=== PATIENT | female | born 1935 | race Caucasian/White ===

== ENCOUNTER → 2016-07-26 | Outpatient (REF) | payer MEDICARE ==
[~2016-07-26] MED LIST: ASPI1TAB PO; ASPI81CH PO; ATEN50TA2 PO; ATOR1TAB21 PO; CARV12.5 PO; CLON-412 PO; CLONI1TA PO; DONETAB5 PO; DONETAB6 PO; LEVO100T5 PO; NICO14PA TD; NORCOTAB PO; SUPE1TAB PO; SUPETAB56 PO; TYLE325T5 PO; VITA100066 PO; VITA100T20 PO; VITA500T88 PO; [UNRECOGNIZED DRUG - CODE] SL
--- NOTE | 2016-07-26 16:30 | REP ---
Clinical: Trauma. Fall. Technique: AP and lateral views of the right hip. Findings: Mild age-related changes are appreciated. No acute fracture or dislocation. Degenerative changes include joint space narrowing with increase sclerosis to the acetabular roof and subtle marginal spurring as well as cortical irregularity at the greater trochanter. Impression: Mild age-related degenerative changes. No acute fracture or dislocation. Signed by Ebenezer Gutierrez MD 07/26/2016 04:22 P
--- NOTE | 2016-07-26 16:31 | REP ---
Clinical: Trauma. Fall. Technique: AP and lateral views of the right femur. Findings: Age-related osteopenia and degenerative changes at the hip and knee joint noted. No acute fracture dislocation. No subcutaneous emphysema or radiodense foreign body. Impression: Age-related degenerative changes. No acute fracture or dislocation. Signed by Ebenezer Gutierrez MD 07/26/2016 04:23 P
--- NOTE | 2016-07-26 16:34 | REP ---
Clinical: Trauma. Fall. Technique: AP, lateral, bilateral oblique, and coned-down views of the lumbosacral spine. Findings: Advanced multilevel degenerative disc osteophyte complexes noted throughout the thoracolumbar spine. Subtle compression deformity at T12 is of uncertain chronicity but relatively new when compared to CT images dated 11/24/2015. No further acute fracture / compression injury or subluxation is appreciated. Impression: Advanced multilevel degenerative changes. Subtle compression deformity at T12 of uncertain chronicity. Signed by Ebenezer Gutierrez MD 07/26/2016 04:26 P
== END ==
LOC: SKLAB8 08:00
DX: M16.11 Unilateral primary osteoarthritis, right hip (principal); M51.37 Other intervertebral disc degeneration, lumbosacral region; M25.78 Osteophyte, vertebrae; W19.XXXA Unspecified fall, initial encounter; Y92.89 Other specified places as the place of occurrence of the external cause; Y93.89 Activity, other specified; Y99.8 Other external cause status

== ENCOUNTER → 2016-07-27 | Outpatient (CLI) | payer MEDICARE ==
--- NOTE | 2016-07-30 13:18 | REP ---
Clinical: Right hip pain. Technique: Neutral and frog lateral views. Comparison: 07/26/2016. Findings: Moderate osteopenia and age-related degenerative changes are again appreciated. No obvious acute fracture or dislocation. Impression: Degenerative changes. No acute fracture or dislocation. Given the patient's recent trauma, if symptoms persist CT of the right hip may be warranted for further investigation. Signed by Ebenezer Gutierrez MD 07/30/2016 01:09 P
== END ==
LOC: M RAD 16:44
DX: M16.11 Unilateral primary osteoarthritis, right hip (principal)

== ENCOUNTER → 2016-07-27 | Outpatient (REF) | payer MEDICARE | LOC: SKLAB8 14:41 | DX: I10 Essential (primary) hypertension (principal); E03.9 Hypothyroidism, unspecified; Z79.899 Other long term (current) drug therapy; M16.11 Unilateral primary osteoarthritis, right hip ==

== ENCOUNTER → 2016-11-22 | Outpatient (REF) | payer MEDICARE ==
[2016-11-22 10:33] LABS: MEAN CORPUSCULAR HEMOGLOBIN 32.5 pg (27.0-33.0); MEAN CORPUSCULAR HGB CONC 33.3 g/dl (32.0-36.5); MEAN CORPUSCULAR VOLUME 97.7 fl (80.0-96.0); RED CELL DISTRIBUTION WIDTH 12.9 % (11.5-14.5)
[2016-11-22 10:48] LABS: CREATININE FOR GFR 1.75 MG/DL (0.55-1.02); GLOMERULAR FILTRATION RATE 29.6 (>32); POTASSIUM SERUM 4.1 MEQ/L (3.5-5.1)
== END ==
LOC: SKLAB8 07:00
DX: E03.9 Hypothyroidism, unspecified (principal); I10 Essential (primary) hypertension

== ENCOUNTER → 2016-11-29 | Outpatient (REF) | payer MEDICARE ==
[2016-11-29 09:21] LABS: CALCIUM LEVEL 8.9 MG/DL (8.8-10.2); CREATININE FOR GFR 1.52 MG/DL (0.55-1.02); GLOMERULAR FILTRATION RATE 34.9 (>32); POTASSIUM SERUM 4.2 MEQ/L (3.5-5.1)
== END ==
LOC: SKLAB8 08:00
PROVIDERS: ATTEND Nurse Practitioner Adult Health
DX: E03.9 Hypothyroidism, unspecified (principal)

== ENCOUNTER 2016-12-24 09:52 | Inpatient (IN) | payer MEDICARE ==
[~2016-12-24] VITALS: Ht 157.5 cm; Wt 50.5 kg
[~2016-12-24 09:52] MED LIST changes: -ACET650S3 PR; -ASPE10LO TOP; -ASPI81CH3 PO; -DULC10SU2 PR; -ENEMENE6 PR; -LEXA1TAB PO; -MILKSUS PO; -SENN1TAB2 PO; +SENOKOT S TAB PO SCH; -SUPETAB PO; -SYNT100T PO; -TRAM50TA2 PO; -VITA500T3 PO; -VITMTA PO; -[UNRECOGNIZED DRUG - CODE] MT
[2016-12-24] MEDS ORDERED: SODIUM CHLORIDE 0.9% 1000 ML IV ONE (10:15)
[2016-12-24] MEDS ORDERED: MORPHINE 2 MG/ML 1ML SYRINGE IV ONE (10:15)
[2016-12-24] MEDS ORDERED: ONDANSETRON 4MG/2ML VIAL (J2405) IV ONE (10:15)
--- NOTE | 2016-12-24 10:39 | REP ---
Chest one-view HISTORY: Preop Comparison: 04/04/2016 A minimal increase in interstitial markings is present in the lungs consistent with chronic interstitial fibrosis. The heart is normal in size. The pulmonary vasculature is normal in appearance. Impression: Chronic interstitial fibrosis. Signed by Chano Steiner MD 12/24/2016 10:31 A
[2016-12-24 10:43] LABS: BASO % 0.2 % (0.0-1.0); EOS % 0.3 % (0.0-3.0); LARGE UNSTAINED CELL # 0.1 K/mm3 (0.0-0.4); LARGE UNSTAINED CELL % 0.8 % (0.0-4.0); LYMPH # 0.7 K/mm3 (1.5-4.5); LYMPH % 5.8 % (24.0-44.0); MEAN CORPUSCULAR HEMOGLOBIN 32.8 pg (27.0-33.0); MEAN CORPUSCULAR VOLUME 96.3 fl (80.0-96.0); MONO # 0.6 K/mm3 (0.0-0.8); NEUTROPHILS # 9.8 K/mm3 (1.8-7.7); NEUTROPHILS % 87.9 % (36.0-66.0); PLATELET COUNT, AUTOMATED 191 k/mm3 (150-450); RED CELL DISTRIBUTION WIDTH 12.9 % (11.5-14.5); WHITE BLOOD COUNT 11.2 K/mm3 (4.0-10.0)
[2016-12-24 10:53] LABS: INR 1.07
[2016-12-24 11:01] LABS: ANION GAP 10 MEQ/L (8-16); BLOOD UREA NITROGEN 18 MG/DL (7-18); CALCIUM LEVEL 9.1 MG/DL (8.8-10.2); CARBON DIOXIDE LEVEL 26 MEQ/L (21-32); CHLORIDE LEVEL 104 MEQ/L (98-107); CREATININE FOR GFR 0.77 MG/DL (0.55-1.02); GLOMERULAR FILTRATION RATE > 60.0 (>32); GLUCOSE, FASTING 119 MG/DL (83-110); POTASSIUM SERUM 3.5 MEQ/L (3.5-5.1); SODIUM LEVEL 140 MEQ/L (136-145)
[2016-12-24] MEDS ORDERED: VITMTA PO (11:44)
[2016-12-24] MEDS ORDERED: LEXA1TAB PO (11:44)
[2016-12-24] MEDS ORDERED: ASPE10LO TOP (11:44)
[2016-12-24] MEDS ORDERED: [UNRECOGNIZED DRUG - CODE] MT (11:44)
[2016-12-24] MEDS ORDERED: ASPI81CH3 PO (11:44)
[2016-12-24] MEDS ORDERED: ENEMENE6 PR (11:44)
[2016-12-24] MEDS ORDERED: TYLE325T5 PO (11:44)
[2016-12-24] MEDS ORDERED: MILKSUS PO (11:44)
[2016-12-24] MEDS ORDERED: SYNT100T PO (11:44)
[2016-12-24] MEDS ORDERED: SENN1TAB2 PO (11:44)
[2016-12-24] MEDS ORDERED: DULC10SU2 PR (11:44)
[2016-12-24] MEDS ORDERED: SUPETAB PO (11:45)
[2016-12-24] MEDS ORDERED: VITA500T3 PO (11:45)
[2016-12-24] MEDS ORDERED: ACET650S3 PR (11:47)
[2016-12-24] MEDS ORDERED: ACETAMINOPHEN TAB 650MG DOSE (2X325MG) PO PRN (13:30)
[2016-12-24] MEDS ORDERED: MOM 30ML SUSPENSION UDC PO PRN (13:30)
[2016-12-24] MEDS ORDERED: BISACODYL 10 MG SUPP PR PRN (13:30)
--- NOTE | 2016-12-24 14:14 | REP ---
Noncontrast brain CT: History: Trauma. Comparison study: March 27, 2016. Findings: Bony calvarium is intact. No skull fracture is seen. The visualized paranasal sinuses are clear. No significant scalp hematoma is appreciated. There is minimal motion artifact. On soft tissue window settings there is moderate diffuse cerebral atrophy and concordant ventricular enlargement. There are small vessel changes in the periventricular white matter as before. There is no evidence of intracranial hemorrhage. No mass, extra-axial fluid collection, or midline shift is seen. Impression: Moderate diffuse cerebral atrophy. Mild vascular calcification. Small vessel changes. No acute intracranial abnormality. Signed by Jim Castillo MD 12/24/2016 04:23 P
[2016-12-24] MEDS ORDERED: MORPHINE 2 MG/ML 1ML SYRINGE IV PRN ×2 (14:30→18:30)
[2016-12-24] MEDS ORDERED: PERCOCET 5MG/325MG TAB PO PRN ×2 (14:30→18:30)
--- NOTE | 2016-12-24 15:23 | HPEPDOC ---
General Date of Admission Dec 24, 2016 at 13:28 Primary Care Physician: Malik Ureña M.D. Attending Physician: CHIRAG KENDALL MD Chief Complaint The patient is a 81-year-old female admitted with a reason for visit of Hip Fracture. Source: Patient, RN/MD History of Present Illness Ms. Torres is an 81 y/o resident of [facility] who was brought in this morning after falling in her room. She was found to have a left hip fracture. At the time of my evaluation she denied any hip pain; she had received morphine in the ED for pain. The patient has dementia and she is uncertain of recent events. She states that she fell yesterday in her living room; however, her nurse states that the [facility] aide who accompanied her to the ED had reported that she fell this morning in her room. Per nurse, patient is unsteady on her feet at baseline and normally walks with a walker, but frequently forgets to use her walker. Per nurse, the [facility] aide thought that she had a mechanical fall due to not using her walker - she was found on the floor after only a brief period of being unsupervised and she had no loss of consciousness or change in baseline mentation when she was found. The patient denies having any complaints at present. Home Medications Scheduled (Senna Plus 8.6-50 mg) 1 Tab Tab, 1 TAB PO DAILY, (Reported) (Aspirin Childrens) 81 Mg Chw, 81 MG PO DAILY, (Reported) (Super B-100) 1 Tab Tab, 1 TAB PO DAILY, (Reported) Cyanocobalamin (Vitamin B-12) 500 Mcg Tab, 500 MCG PO DAILY, (Reported) Escitalopram Oxalate (Lexapro) 10 Mg Tab, 10 MG PO QHS, (Reported) Levothyroxine Sodium (Synthroid) 100 Mcg Tab, 100 MCG PO DAILY, (Reported) @ 1100 Multivitamins *[facility] STOCKED* (Thera M Plus *[facility] STOCKED*) 1 Tab Tab, 1 TAB PO DAILY, (Reported) Scheduled PRN (Aspercreme) 10 % Lot, 1 DOSE TOP Q2H PRN for PAIN, (Reported) (Enema Disposable) 1 Lucrecia Lucrecia, 1 LUCRECIA MI DAILY PRN for CONSTIPATION, (Reported) Acetaminophen (Tylenol) 325 Mg Tab, 650 MG PO Q4H PRN for PAIN / FEVER, ( Reported) Acetaminophen (Acetaminophen) 650 Mg Sup, 650 MG MI Q4H PRN for PAIN / FEVER, ( Reported) Bisacodyl (Dulcolax) 10 Mg Sup, 10 MG MI DAILY PRN for CONSTIPATION, (Reported) Menthol ([place] Cough Drops) 1 Ea Arcadio, 1 ARCADIO MT Q1H PRN for COUGH, (Reported) Milk Of Magnesia (Milk of Magnesia) 1,200 Mg/15 Ml Anne, 30 ML PO DAILY PRN for CONSTIPATION, (Reported) Allergies Coded Allergies: Penicillins (Unverified Allergy, Unknown, INJ. SITE RED ,HOT AND SWELLING , 09/12/12) Penicillins Cross Reactors (Unverified Allergy, Unknown, INJ. SITE RED , HOT AND SWELLING, 09/12/12) Past Medical History Medical History (Per halfway records) 1. Generalized muscle weakness and difficulty walking 2. Depression 3. Moderate protein-calorie malnutrition 4. Vitamin D deficiency 5. Hypothyroidism 6. Hypertension 7. Paroxysmal atrial fibrillation 8. COPD 9. Alzheimer's disease Surgical History (Per old records) 1. Rectal surgery 2009 Family History Significant Family History: Noncontributory Social History * Smoker: former Smoker Alcohol: Denies Drugs: denies Lives at [facility] Review of Symptoms Constitutional: Denies: Chills, Fever, Malaise Eyes: Denies: Pain, Vision change ENT: Denies: Head Aches Skin: Reports: Rash (under right breast) Pulmonary: Denies: Dyspnea, Cough Cardiovascular: Denies: Chest Pain, Palpitations, Lt Headedness Gastrointestinal: Denies: Nausea, Vomiting, Abdominal Pain, Diarrhea, Constipation Genitourinary: Denies: Dysuria Hematologic: Denies: Bruising, Bleeding Excessively Musculoskeletal: Denies: Neck Pain, Back Pain, Joint Pain, Muscle Pain Neurological: Denies: Weakness, Numbness Psych: Reports: Mood Normal Physical Examination General Exam: Positive: Alert, Cooperative, No Acute Distress Eye Exam: Positive: PERRLA, Conjunctiva & lids normal, EOMI ENT Exam: Positive: Atraumatic, Mucous membr. moist/pink Neck Exam: Positive: Supple Chest Exam: Positive: Clear to auscultation, Normal air movement Heart Exam: Positive: Rate Normal, Regular Rhythm, Normal S1, Normal S2, Negative: Murmurs Abdomen Exam: Positive: Normal bowel sounds, Soft, Negative: Tenderness Extremity Exam: Positive: Tenderness (Left hip diffusely tender to palpation), Negative: Clubbing, Cyanosis, Edema, Swelling Skin Exam: Positive: Rash (erythematous moist rash under right breast), Negative: Breakdown Neuro Exam: Positive: Normal Speech, Strength at 5/5 X4 ext, Normal Tone, Sensation Intact, Cranial Nerves 3-12 NL Psych Exam: Positive: Mood NL, Oriented x 3 (To person, place; not to situation or recent events) Other physical findings EKG showed normal sinus rhythm; T-wave flattening noted in I, V1, V6; unchanged as compared to prior EKG in 03/2016 Vital Signs Vital Signs Date Time Temp Pulse Resp B/P (MAP) Pulse Ox O2 Delivery O2 Flow Rate FiO2 12/24/16 14:37 72 94 12/24/16 12:42 159/73 (101) 12/24/16 11:10 18 Room Air Laboratory Data Labs 24H Laboratory Tests 2 12/24/16 10:32: White Blood Count 11.2H, Red Blood Count 3.69L, Hemoglobin 12.1, Hematocrit 35.5L, Mean Corpuscular Volume 96.3H, Mean Corpuscular Hemoglobin 32.8, Mean Corpuscular Hemoglobin Concent 34.0, Red Cell Distribution Width 12.9, Platelet Count 191, Neutrophils (%) (Auto) 87.9H, Lymphocytes (%) (Auto) 5.8L, Monocytes (%) (Auto) 5.0, Eosinophils (%) (Auto) 0.3, Basophils (%) (Auto) 0.2, Neutrophils # (Auto) 9.8H, Lymphocytes # (Auto) 0.7L, Monocytes # (Auto) 0.6, Eosinophils # (Auto) 0.0, Basophils # (Auto) 0.0, Large Unclassified Cells % 0.8 , Large Unclassified Cells # 0.1, Prothrombin Time 14.0, Prothromb Time International Ratio 1.07, Anion Gap 10, Glomerular Filtration Rate > 60.0, Blood Urea Nitrogen 18, Creatinine 0.77, Sodium Level 140, Potassium Level 3.5, Chloride Level 104, Carbon Dioxide Level 26, Calcium Level 9.1 CBC/BMP Laboratory Tests 12/24/16 10:32 Red Blood Count 3.69 L, Mean Corpuscular Volume 96.3 H, Mean Corpuscular Hemoglobin 32.8, Mean Corpuscular Hemoglobin Concent 34.0, Red Cell Distribution Width 12.9, Neutrophils (%) (Auto) 87.9 H, Lymphocytes (%) (Auto) 5.8 L, Monocytes (%) (Auto) 5.0, Eosinophils (%) (Auto) 0.3, Basophils (%) (Auto ) 0.2, Neutrophils # (Auto) 9.8 H, Lymphocytes # (Auto) 0.7 L, Monocytes # (Auto ) 0.6, Eosinophils # (Auto) 0.0, Basophils # (Auto) 0.0, Calcium Level 9.1 RAD Interpretation STUDY: CXR Rad Actions: Report Reviewed (Diffuse pulmonary interstitial fibrosis) RAD Interpretation: Unchanged Problems (1) Hip fracture Status: Acute Response to Treatment: Stable Problem Text: Due to mechanical fall at [facility] - Consult Ortho - Dr. Franco plans to repair today - Medically optimized for surgery; CXR and EKG are stable and unchanged from baseline - Percocet for moderate pain, morphine for severe pain - Holding aspirin prior to surgery (2) Leukocytosis Status: Acute Problem Text: Mild elevation in WBCs; likely due to stress of recent fracture - Recheck CBC in the AM (3) Hypertension Status: Chronic Response to Treatment: Stable Problem Text: Mildly elevated in the ED, likely due to pain. Monitor. (4) Depression Status: Chronic Response to Treatment: Stable Problem Text: Continue escitalopram (5) Hypothyroidism Problem Text: Continue levothyroxine. (6) Paroxysmal a-fib Status: Chronic Problem Text: NSR in the ED. - Holding aspirin Plan / VTE VTE Prophylaxis Ordered?: Yes (SCD/TEDs) Plan / Urinary Catheter Reason for insertion/continuin: Perioperative Plan Advanced Directives: MOLST Form is available, Do Not Resuscitate (DNR), Do Not Intubate (DNI) CHIRAG KENDALL MD Dec 24, 2016 15:23
--- NOTE | 2016-12-24 15:27 | REP ---
Lumbar spine: Two views. History: Trauma. Findings: AP and cross-table lateral views of the lumbar spine show a dextroconvex mild curvature. Degenerative disc and osteoarthritic facet changes are seen. The degenerative disc changes are most pronounced at L3-4 and L4-5 and the osteoarthritic facet changes are most pronounced on the right at L4-5, L5-S1, and L3-4. Sacrum and SI joints are intact. No fracture or collapse is seen. Impression: Degenerative changes. Mild scoliosis. No traumatic abnormality seen. Limited study. Signed by Jim Castillo MD 12/24/2016 04:25 P
--- NOTE | 2016-12-24 15:27 | REP ---
Thoracic spine series: Three views. History: Trauma. Findings: Thoracic vertebral body heights are preserved and alignment is normal. No fracture or collapse is seen. Very subtle wedging at T12 is noted unchanged from comparison study July 26, 2016. Discogenic spurring is noted in the mid and lower thoracic spine. Swimmer's lateral view shows degenerative disc disease at C4-5 and C5-6. No paravertebral soft-tissue mass is seen. Impression: No traumatic abnormality noted. Degenerative changes. Signed by Jim Castillo MD 12/24/2016 04:25 P
[2016-12-24] MEDS ORDERED: CLINDAMYCIN 600 MG/50 ML PREMIX BAG As Ordered ONE (16:20)
[2016-12-24] MEDS ORDERED: BUPIVACAINE/EPIN 0.25% 30 ML VIAL As Ordered ONE (16:20)
[2016-12-24] MEDS ORDERED: CLINDAMYCIN INJ 900MG/6ML VIAL As Ordered ONE (16:24)
[2016-12-24] MEDS ORDERED: VANCOMYCIN 1000 MG/20 ML VIAL (J3370) As Ordered ONE (16:51)
[2016-12-24] MEDS ORDERED: WARFARIN SOD 1 MG TAB PO SCH (17:00)
[2016-12-24] MEDS ORDERED: WARFARIN SOD 2.5 MG TAB PO SCH (17:00)
[2016-12-24] MEDS ORDERED: MIDAZOLAM INJ 2 MG/2 ML VIAL (J2250) As Ordered ONE (17:14)
[2016-12-24] MEDS ORDERED: fentaNYL 100 MCG/2 ML INJECTION (J3010) As Ordered ONE (17:14)
[2016-12-24] MEDS ORDERED: KETAMINE HCL 200 MG/20 ML VIAL As Ordered ONE (17:14)
[2016-12-24] MEDS ORDERED: PHENYLephrine HCL 500 MCG/5 ML (100MCG/ML) SYRINGE (J2370) As Ordered ONE (17:18)
[2016-12-24] MEDS ORDERED: BUPIVACAINE HCL 0.25% 30 ML VIAL As Ordered ONE (17:33)
[2016-12-24] MEDS ORDERED: BUPIVACAINE HCL 0.5% 30 ML VIAL As Ordered ONE (17:33)
[2016-12-24] MEDS ORDERED: ePHEDrine SULFATE 25 MG/5 ML(5MG/ML) SYRINGE As Ordered ONE (17:35)
[2016-12-24] MEDS ORDERED: ACETAMINOPHEN TAB 650MG DOSE (2X325MG) As Ordered ONE (18:29)
[2016-12-24] MEDS ORDERED: LR 1,000 ML IV SCH (18:30)
[2016-12-24] MEDS ORDERED: fentaNYL 100 MCG/2 ML INJECTION (J3010) IV PRN (18:30)
[2016-12-24] MEDS ORDERED: ONDANSETRON 4MG/2ML VIAL (J2405) IV PRN ×2 (18:30)
[2016-12-24] MEDS: ACETAMINOPHEN TAB 650MG DOSE (2X325MG) PO PRN ×2 (18:36→23:07)
--- NOTE | 2016-12-24 19:03 | ECGEPIP ---
Stationary ECG Study [facility] - ED Test Date: 2016-12-24 Pat Name: TOMASZ DE LEON Department: Room: [place] [address] Gender: F Exhibit Specialist: kiko : [id number] Requested By: Alma Hughes Order Number: [id number] Reading MD: Alma Hughes Measurements Intervals [place] Rate: 77 P: 82 AK: 156 QRS: 65 QRSD: 158 T: 86 QT: 356 QTc: 404 Interpretive Statements SINUS RHYTHM WITH OCCASIONAL SUPRAVENTRICULAR PREMATURE COMPLEXES NSTTW ABNORMALITY BASELINE ARTIFACT LIMITS INTERPRETATION INCREASED RATE 04/04/16 Electronically Signed On 12-24-2016 19:03:11 EDT by Alma Hughes
--- NOTE | 2016-12-24 19:14 | REP ---
Left hip fluoroscopic intraoperative views: A total of 11 views are performed during gamma nail placement: The gamma nail is in satisfactory position alignment. Fluoroscopic exposure time is 57 seconds. Fluoroscopic images are performed with last image hold technology. These images require no additional radiation. Signed by Angel Timmons MD 12/24/2016 07:06 P
[2016-12-24 19:45] VITALS: BP 145/66
[2016-12-24 20:15] VITALS: BP 155/70
[2016-12-24] MEDS: ASCORBIC ACID 500 MG TAB PO SCH (20:17)
[2016-12-24] MEDS: ESCITALOPRAM OXALATE 10 MG TAB (LEXAPRO) PO SCH (20:17)
[2016-12-24] MEDS: DOCUSATE SODIUM 100 MG CAP PO SCH (20:17)
[2016-12-24 21:15] VITALS: BP 166/72
[2016-12-24 22:15] VITALS: BP 127/60
[2016-12-24 23:15] VITALS: BP 155/67
[2016-12-25 00:15] VITALS: BP 144/66
[2016-12-25 04:15] VITALS: BP 158/65
[2016-12-25] MEDS ORDERED: VANCOMYCIN HCL 750 MG, VIAL MATE ADAPTER 1 EACH in D5W 250 ML IV ONE (06:00)
[2016-12-25 06:25] LABS: MEAN CORPUSCULAR HGB CONC 34.3 g/dl (32.0-36.5); RED CELL DISTRIBUTION WIDTH 13.5 % (11.5-14.5); WHITE BLOOD COUNT 10.4 K/mm3 (4.0-10.0)
[2016-12-25 06:39] LABS: CALCIUM LEVEL 8.4 MG/DL (8.8-10.2); CREATININE FOR GFR 1.11 MG/DL (0.55-1.02)
[2016-12-25] MEDS: LEVOTHYROXINE 100MCG TABLET (0.1MG) PO SCH (06:41)
[2016-12-25 08:00] VITALS: BP 163/72
--- NOTE | 2016-12-25 09:11 | CR ---
DATE OF CONSULTATION: 12/24/2016 CHIEF COMPLAINT: Left hip fracture. HISTORY: 81-year-old who fell while at home at [facility]. She lives in an apartment there. She has early Alzheimer's but still lives semi independently there with visual merchandising assistant. She complains of left hip pain. Although she thought she fell yesterday, nurses at [facility] indicated that she fell this morning. She normally has trouble with her balance longstanding. She is supposed to use a walker but does not always use it. She is not complaining of numbness or tingling. MEDICATIONS: Include: - Senna - aspirin - B complex - Lexapro - Synthroid - Tylenol as needed for pain - Dulcolax as needed for constipation - Cough drops ALLERGIES: PENICILLIN. She says that she got swelling. Possible penicillin cross-over reaction. MEDICAL HISTORY: Includes: 1. Gait disorder. 2. Depression. 3. Calorie malnutrition. 4. Vitamin deficiency. 5. Hypothyroidism. 6. Hypertension. 7. Atrial fibrillation. 8. Emphysema. 9. Alzheimer's disease. SURGICAL HISTORY: Includes rectal surgery in 2009. FAMILY HISTORY: Noncontributory. SOCIAL HISTORY: Quit smoking. Does not drink. Lives at [facility]. REVIEW OF SYSTEMS She is only complaining of left hip pain. She is not complaining of fever or chills. She is not complaining about blurry vision, headache, skin disorder, lung disorder, heart pain, chest pain, stomach pain, dysuria. Denies bleeding or bruising. Denies numbness or tingling. PHYSICAL EXAMINATION: She is alert and cooperative. She is pleasant. She has a good sense of humor and she is easily confused. She makes good eye contact. Conjunctivae are clear. Normocephalic, atraumatic. Neck is not tender. No shortness of breath. Cardiac is regular at about 80. Extremities: She has mild cachexia. Abdomen is soft. Left lower extremity shortened and internally rotated, palpable pulse, sensate, no ankle edema on either side. No knee edema on either side. Calves are soft and nontender. Hematocrit 35, creatinine 0.77. IMAGING STUDIES: Displaced intertrochanteric femoral fracture with lesser trochanteric involvement. RECOMMENDATIONS: 1. Medical optimization per Dr. Ruiz. 2. Closed reduction and placement of cephalomedullary nail for left hip fracture. Discussed the procedure in some detail with the son, who is present at bedside, including sherrell discussion of pathology involved, procedure proposed, alternatives, including doing nothing, risks including but not limited to pain, failure, gait disorder, infection, need for more surgery, blood clots or some other problem, including . He agrees to proceed with surgery. The patient agrees to proceed with surgery. Coordinated care with emergency room, Dr. Ruiz's service, operating room and anesthesiologist. Approximately 55 minutes was invested in this consult, more than 50% which was oiod-mi-gfdc time.
[2016-12-25] MEDS: ASCORBIC ACID 500 MG TAB PO SCH ×2 (09:27→20:28)
[2016-12-25] MEDS: ACETAMINOPHEN TAB 650MG DOSE (2X325MG) PO PRN ×3 (09:27→20:28)
[2016-12-25] MEDS: MIRALAX *UNIT DOSE* 17GM PACKET PO SCH (09:27)
[2016-12-25] MEDS: DOCUSATE SODIUM 100 MG CAP PO SCH ×2 (09:27→20:28)
--- NOTE | 2016-12-25 10:43 | IPNPDOC ---
Subjective Date Seen The patient was seen on 12/25/16. Subjective Chief Complaint/HPI The patient is a 81-year-old female admitted with a reason for visit of Hip Fracture. Events since last encounter S/p surgical repair of LEFT hip fracture with Dr. Franco. Marlen c/o today. Has sitter at bedside due to dementia dx. Constitutional: Denies: Chills, Fever, Night Sweats ENT: Denies: Head Aches, Ear Pain, Dysphagia Pulmonary: Denies: Dyspnea, Cough Cardiovascular: Denies: Chest Pain, Palpitations, Orthopnea, Paroxysmal Noc. Dyspnea, Lt Headedness Gastrointestinal: Denies: Nausea, Vomiting, Abdominal Pain, Diarrhea, Constipation Genitourinary: Denies: Dysuria, Frequency, Incontinence, Retention Objective Physical Examination General Exam: Positive: Alert, Cooperative, No Acute Distress Eye Exam: Positive: PERRLA, Conjunctiva & lids normal, EOMI ENT Exam: Positive: Atraumatic, Mucous membr. moist/pink Neck Exam: Positive: Supple Chest Exam: Positive: Clear to auscultation, Normal air movement Heart Exam: Positive: Rate Normal, Regular Rhythm, Normal S1, Normal S2, Negative: Murmurs Abdomen Exam: Positive: Normal bowel sounds, Soft, Negative: Tenderness Extremity Exam: Positive: Tenderness (Left hip diffusely tender to palpation), Negative: Clubbing, Cyanosis, Edema, Swelling Skin Exam: Positive: Rash (erythematous moist rash under right breast), Negative: Breakdown Neuro Exam: Positive: Normal Speech, Strength at 5/5 X4 ext, Normal Tone, Sensation Intact, Cranial Nerves 3-12 NL Psych Exam: Positive: Mood NL, Oriented x 3 (To person, place; not to situation or recent events) Assessment /Plan Problems (1) Anemia Status: Acute Problem Text: 12/25 8.7-rbgyltryenqp-dccue surgical loss/dilutional-tx if <8; given VKA 5 by Ortho 12/24 12.1 11/22/16 hgb 11.0-baseline prior on asa 81 for AF 12/24/16 INR 1.1 (2) Hip fracture Status: Acute Response to Treatment: Stable Problem Text: POD 1 Closed reduction and placement of cephalomedullary nail for left hip fracture-Franco - Percocet for moderate pain, morphine for severe pain - Holding aspirin prior to surgery (3) Leukocytosis Status: Acute Problem Text: afebrile-no s/s of focal infection 12/25 10.4 12/24 11.2K (4) Hypertension Status: Chronic Response to Treatment: Stable Problem Text: Adequate range for age on no BP meds baseline (5) Depression Status: Chronic Response to Treatment: Stable Problem Text: Continue escitalopram (6) Hypothyroidism Problem Text: Continue levothyroxine 100 (7) Paroxysmal a-fib Status: Chronic Problem Text: asa 81 for anti-platelet nothing for rate-control (8) JF (acute kidney injury) Status: Acute Problem Text: 12/25 1.1-t/f 12/24 cr 0.8-baseline Plan/VTE VTE Prophylaxis Ordered?: Yes (SCD/TEDs) Plan/Urinary Catheter Reason for insertion/continuin: Perioperative VS, I&O, 24H, Fishbone Vital Signs/I&O Vital Signs Date Time Temp Pulse Resp B/P (MAP) Pulse Ox O2 Delivery O2 Flow Rate FiO2 12/25/16 06:56 Nasal Cannula 2.0 12/25/16 04:15 98.4 84 18 158/65 (96) 98 I&O- Last 24 Hours up to 6 AM 12/25/16 06:00 Intake Total 1940 ml Output Total 500 ml Balance 1440 ml Laboratory Data 24H LABS Laboratory Tests 2 12/25/16 06:08: Anion Gap 9, Glomerular Filtration Rate 50.0, Blood Urea Nitrogen 23H, Creatinine 1.11H, Sodium Level 139, Potassium Level 4.0, Chloride Level 106, Carbon Dioxide Level 24, Calcium Level 8.4L CBC/BMP Laboratory Tests 12/25/16 06:08 Red Blood Count 2.63 L, Mean Corpuscular Volume 96.0, Mean Corpuscular Hemoglobin 33.0, Mean Corpuscular Hemoglobin Concent 34.3, Red Cell Distribution Width 13.5, Calcium Level 8.4 L Jodi Mcallister Dec 25, 2016 10:43 Artis Solano M.D. Dec 25, 2016 17:30
--- NOTE | 2016-12-25 13:12 | RO ---
DATE OF PROCEDURE: 12/24/2016 PREOPERATIVE DIAGNOSIS: Left hip intertrochanteric fracture. POSTOPERATIVE DIAGNOSIS: Left hip intertrochanteric fracture. PROCEDURE PERFORMED: Placement of intramedullary cephalomedullary nail system/Synthes TFN nail, intermediate. SURGEON: Dr. Payam Franco ANESTHESIA: Spinal. ESTIMATED BLOOD LOSS: Less than 50. COMPLICATIONS: None. INDICATIONS: She fell in her apartment fracturing her hip, displaced fracture. Consent reviewed in detail and I reviewed the consent with her son, who is power of regulatory attorney because she does have Alzheimer's condition. Consent involved a sherrell discussion of pathology involved, procedure proposed, alternatives such as doing nothing and risks, including, but not limited to pain, failure, bleeding, blood loss, incomplete relief, need for more surgery, infection or some other problem. They agreed to proceed. DESCRIPTION OF PROCEDURE: Identified in the holding area. Site and side verified. Brought to the operating room. Once spinal anesthesia was administered, she was positioned on the fracture table for exposure of the left leg. The contralateral right leg was secured against the fracture table in the scissor position with the hip slightly extended to allow x-ray. The left leg was placed in the leg positioner, pulled to length and internally rotated. Next, at this stage, C-arm was brought in to verify our reduction in AP and lateral plane, reduction appeared to be adequate. Next, sterilely prepped, draped in the usual fashion. Time-out was accomplished. Next, incision outlined with marking pen and infiltrated with 0.25% Marcaine with epinephrine, made with the 10 blade knife and developed down through skin and subcuticular tissues. The incision was based on palpation of the greater trochanter. The trochanter was again palpated lateral fascia was split. Trocar was placed against the greater trochanter. Threaded pin was drilled through the greater trochanter into the femoral canal. Pin adjustment was accomplished using fluoroscopy in the pin coach driver. Once the pin was driven into place, I overdrilled with the step drill using the soft tissue protector to protect soft tissues. Next, pin was exchanged for a longer pin. The intermediate nail was slid over the wire, secured into place. The cephalic portion was now placed. The cephalic guide was secured. Incision was made two fingerbreadths. Guide was placed against the lateral femur, better verified fluoroscopically. Next, I drilled a threaded pin into the femoral head. The pin was adjusted using fluoroscopy. Next, I measured off some pin for a 100 mm cephalic component. Next, I overdrilled the pin to 95, which seemed to be a little short so then we continued drilling to 100. Next, I placed a 100 mm cephalic blade which was tamped into place until secure. Next, once this was accomplished, the distal locking screw guide was installed through a small incision, drilled, predicted a 36 mm and placed a 36 mm self-tapping 4.0 screw. Verified screw placement fluoroscopically. Next, proximally, we placed the proximal rotational locking screw, it was backed off one-half turn to allow for collapse. Next, the handle assembly was then removed. Irrigation was accomplished. Final fluoroscopic room images were accomplished. Wounds were closed with interrupted stitch followed by edmond. Sterile dressing applied. The patient then moved to recovery room in good condition. For further details, please refer to the medical record.
[2016-12-25 14:00] VITALS: BP 146/74
[2016-12-25] MEDS ORDERED: WARFARIN SOD 5 MG TAB PO ONE (17:00)
[2016-12-25] MEDS: ESCITALOPRAM OXALATE 10 MG TAB (LEXAPRO) PO SCH (20:28)
[2016-12-25 22:00] VITALS: BP 168/72
[2016-12-26] MEDS: ACETAMINOPHEN TAB 650MG DOSE (2X325MG) PO PRN ×4 (00:46→19:45)
[2016-12-26] MEDS: LEVOTHYROXINE 100MCG TABLET (0.1MG) PO SCH (05:57)
[2016-12-26 06:00] VITALS: BP 192/60
[2016-12-26 06:24] LABS: BASO % 0.4 % (0.0-1.0); EOS # 0.3 K/mm3 (0.0-0.50); EOS % 3.2 % (0.0-3.0); LARGE UNSTAINED CELL # 0.2 K/mm3 (0.0-0.4); LARGE UNSTAINED CELL % 1.6 % (0.0-4.0); LYMPH # 0.7 K/mm3 (1.5-4.5); LYMPH % 8.2 % (24.0-44.0); MEAN CORPUSCULAR HEMOGLOBIN 33.1 pg (27.0-33.0); MEAN CORPUSCULAR HGB CONC 34.8 g/dl (32.0-36.5); MEAN CORPUSCULAR VOLUME 95.1 fl (80.0-96.0); MONO # 0.7 K/mm3 (0.0-0.8); MONO % 7.6 % (0.0-5.0); NEUTROPHILS # 7.1 K/mm3 (1.8-7.7); NEUTROPHILS % 78.9 % (36.0-66.0); PLATELET COUNT, AUTOMATED 161 k/mm3 (150-450); RED CELL DISTRIBUTION WIDTH 13.1 % (11.5-14.5)
[2016-12-26 06:27] LABS: INR 2.07
[2016-12-26 06:45] LABS: ANION GAP 9 MEQ/L (8-16); BLOOD UREA NITROGEN 18 MG/DL (7-18); CALCIUM LEVEL 8.3 MG/DL (8.8-10.2); CARBON DIOXIDE LEVEL 25 MEQ/L (21-32); CHLORIDE LEVEL 105 MEQ/L (98-107); FERRITIN 479 NG/ML (8-252); GLOMERULAR FILTRATION RATE > 60.0 (>32); GLUCOSE, FASTING 112 MG/DL (83-110); PERCENT SATURATION 11.6 % (13.2-37.4); POTASSIUM SERUM 3.8 MEQ/L (3.5-5.1); SODIUM LEVEL 139 MEQ/L (136-145); TOTAL IRON BINDING CAPACITY 172 UG/DL (250-450)
[2016-12-26 07:12] VITALS: BP 186/60
[2016-12-26 07:30] VITALS: BP 160/57
[2016-12-26 08:10] VITALS: BP 140/58
[2016-12-26] MEDS: DOCUSATE SODIUM 100 MG CAP PO SCH ×2 (09:56→19:45)
[2016-12-26] MEDS: ASCORBIC ACID 500 MG TAB PO SCH ×2 (09:56→19:45)
[2016-12-26] MEDS: MIRALAX *UNIT DOSE* 17GM PACKET PO SCH (09:57)
--- NOTE | 2016-12-26 11:53 | IPNPDOC ---
Subjective Date Seen The patient was seen on 12/26/16. Subjective Chief Complaint/HPI The patient is a 81-year-old female admitted with a reason for visit of Hip Fracture. Events since last encounter CAlled this am for elevated BP 190/100. Patient asymptomatic. BP came down throughout the morning. Constitutional: Denies: Chills, Fever, Night Sweats Pulmonary: Denies: Dyspnea, Cough Cardiovascular: Denies: Chest Pain, Palpitations, Orthopnea, Paroxysmal Noc. Dyspnea, Lt Headedness Objective Physical Examination General Exam: Positive: Alert, Cooperative, No Acute Distress Eye Exam: Positive: PERRLA, Conjunctiva & lids normal, EOMI ENT Exam: Positive: Atraumatic, Mucous membr. moist/pink Neck Exam: Positive: Supple Chest Exam: Positive: Clear to auscultation, Normal air movement Heart Exam: Positive: Rate Normal, Regular Rhythm, Normal S1, Normal S2, Negative: Murmurs Abdomen Exam: Positive: Normal bowel sounds, Soft, Negative: Tenderness Extremity Exam: Positive: Tenderness (Left hip diffusely tender to palpation), Negative: Clubbing, Cyanosis, Edema, Swelling Skin Exam: Positive: Rash (erythematous moist rash under right breast), Negative: Breakdown Neuro Exam: Positive: Normal Speech, Strength at 5/5 X4 ext, Normal Tone, Sensation Intact, Cranial Nerves 3-12 NL Psych Exam: Positive: Mood NL, Oriented x 3 (To person, place; not to situation or recent events) Assessment /Plan Problems (1) Anemia Status: Acute Problem Text: 12/26/16: iron deficient with Surgical loss. Repeat CBC in am. 12/25 8.6-[id number]-[id number] surgical loss/dilutional-tx if <8; given VKA 5 by Ortho 12/24 12.1 11/22/16 hgb 11.0-baseline prior on asa 81 for AF 12/24/16 INR 1.1 (2) Hip fracture Status: Acute Response to Treatment: Stable Problem Text: POD 2 Closed reduction and placement of cephalomedullary nail for left hip fracture- Franco - Percocet for moderate pain, morphine for severe pain - Holding aspirin prior to surgery (3) Hypertension Status: Chronic Response to Treatment: Stable Problem Text: 12/26/16: elevated this am. May be pain related with recent surgery. monitor. Encouraged nursing staff to offer pain medication/assess pain routinely on no BP meds baseline (4) Depression Status: Chronic Response to Treatment: Stable Problem Text: Continue escitalopram (5) Hypothyroidism Problem Text: Continue levothyroxine 100 (6) Paroxysmal a-fib Status: Chronic Problem Text: asa 81 for anti-platelet nothing for rate-control (7) JF (acute kidney injury) Status: Acute Problem Text: 12/25 1.1-t/f 12/24 cr 0.8-baseline (8) Leukocytosis Status: Resolved Problem Text: afebrile-no s/s of focal infection 12/25 10.4 12/24 11.2K Plan/VTE VTE Prophylaxis Ordered?: Yes (SCD/TEDs) Plan/Urinary Catheter Reason for insertion/continuin: Perioperative Plan Family Medicine Attending Note: I saw and examined Ms. Torres this afternoon; I discussed her care with Jodi Mcallister NP and I agree with her note above. Ms. Torres had no complaints this afternoon and was resting comfortably. Continue pain management per Ortho, monitor BP (which I agree was likely elevated due to pain this morning) and recheck CBC in the AM to monitor post-op anemia. (KES) VS, I&O, 24H, Fishbone Vital Signs/I&O Vital Signs Date Time Temp Pulse Resp B/P (MAP) Pulse Ox O2 Delivery O2 Flow Rate FiO2 12/26/16 10:07 Room Air 12/26/16 08:10 99.8 70 18 140/58 (85) 93 12/25/16 08:00 2.0 I&O- Last 24 Hours up to 6 AM 12/26/16 06:00 Intake Total 650 ml Output Total 400 ml Balance 250 ml Laboratory Data 24H LABS Laboratory Tests 2 12/26/16 06:07: White Blood Count 9.0, Red Blood Count 2.50L, Hemoglobin 8.3L, Hematocrit 23.8L , Mean Corpuscular Volume 95.1, Mean Corpuscular Hemoglobin 33.1H, Mean Corpuscular Hemoglobin Concent 34.8, Red Cell Distribution Width 13.1, Platelet Count 161, Neutrophils (%) (Auto) 78.9H, Lymphocytes (%) (Auto) 8.2L, Monocytes (%) (Auto) 7.6H, Eosinophils (%) (Auto) 3.2H, Basophils (%) (Auto) 0.4, Neutrophils # (Auto) 7.1, Lymphocytes # (Auto) 0.7L, Monocytes # (Auto) 0.7, Eosinophils # (Auto) 0.3, Basophils # (Auto) 0.0, Large Unclassified Cells % 1.6 , Large Unclassified Cells # 0.2, Prothrombin Time 24.0H, Prothromb Time International Ratio 2.07, Anion Gap 9, Glomerular Filtration Rate > 60.0, Blood Urea Nitrogen 18, Creatinine 0.90, Sodium Level 139, Potassium Level 3.8, Chloride Level 105, Carbon Dioxide Level 25, Calcium Level 8.3L, Iron Level 20L , Total Iron Binding Capacity 172L, Transferrin % Saturation 11.6L, Ferritin 479H CBC/BMP Laboratory Tests 12/26/16 06:07 Red Blood Count 2.50 L, Mean Corpuscular Volume 95.1, Mean Corpuscular Hemoglobin 33.1 H, Mean Corpuscular Hemoglobin Concent 34.8, Red Cell Distribution Width 13.1, Neutrophils (%) (Auto) 78.9 H, Lymphocytes (%) (Auto) 8.2 L, Monocytes (%) (Auto) 7.6 H, Eosinophils (%) (Auto) 3.2 H, Basophils (%) ( Auto) 0.4, Neutrophils # (Auto) 7.1, Lymphocytes # (Auto) 0.7 L, Monocytes # ( Auto) 0.7, Eosinophils # (Auto) 0.3, Basophils # (Auto) 0.0, Calcium Level 8.3 L Jodi Mcallister Dec 26, 2016 11:53 CIHRAG KENDALL MD Dec 26, 2016 15:10
[2016-12-26] MEDS: FERROUS SULFATE 325MG TAB PO SCH ×2 (13:06→19:46)
[2016-12-26 14:00] VITALS: BP 155/70
[2016-12-26] MEDS ORDERED: WARFARIN SOD 1 MG TAB PO ONE (17:00)
[2016-12-26] MEDS ORDERED: ONDANSETRON 4 MG ORAL DISINTEGRATING TAB (S0181) PO PRN (17:45)
[2016-12-26] MEDS: ESCITALOPRAM OXALATE 10 MG TAB (LEXAPRO) PO SCH (19:46)
[2016-12-26 22:00] VITALS: BP 164/62
[2016-12-27] MEDS: ACETAMINOPHEN TAB 650MG DOSE (2X325MG) PO PRN ×3 (04:14→20:49)
[2016-12-27 06:00] VITALS: BP 158/70
[2016-12-27 06:16] LABS: INR 2.38
[2016-12-27 06:17] LABS: BASO % 0.3 % (0.0-1.0); EOS # 0.4 K/mm3 (0.0-0.50); EOS % 5.7 % (0.0-3.0); LARGE UNSTAINED CELL # 0.1 K/mm3 (0.0-0.4); LARGE UNSTAINED CELL % 2.1 % (0.0-4.0); LYMPH # 0.9 K/mm3 (1.5-4.5); LYMPH % 12.4 % (24.0-44.0); MEAN CORPUSCULAR HEMOGLOBIN 32.4 pg (27.0-33.0); MEAN CORPUSCULAR HGB CONC 34.1 g/dl (32.0-36.5); MEAN CORPUSCULAR VOLUME 95.1 fl (80.0-96.0); MONO # 0.5 K/mm3 (0.0-0.8); MONO % 8.1 % (0.0-5.0); NEUTROPHILS # 4.6 K/mm3 (1.8-7.7); NEUTROPHILS % 71.4 % (36.0-66.0); PLATELET COUNT, AUTOMATED 150 k/mm3 (150-450); RED CELL DISTRIBUTION WIDTH 13.7 % (11.5-14.5); WHITE BLOOD COUNT 6.4 K/mm3 (4.0-10.0)
[2016-12-27] MEDS: LEVOTHYROXINE 100MCG TABLET (0.1MG) PO SCH (06:41)
[2016-12-27] MEDS ORDERED: TRAM50TA2 PO (06:53)
[2016-12-27 07:19] LABS: ALBUMIN 2.4 GM/DL (3.2-5.2); ALBUMIN/GLOBULIN RATIO 0.75 (1.00-1.93); ALKALINE PHOSPHATASE 55 U/L (45-117); ALT/SGPT 17 U/L (12-78); ANION GAP 5 MEQ/L (8-16); AST/SGOT 18 U/L (15-37); BILIRUBIN,TOTAL 0.5 MG/DL (0.2-1.0); BLOOD UREA NITROGEN 17 MG/DL (7-18); CALCIUM LEVEL 8.1 MG/DL (8.8-10.2); CARBON DIOXIDE LEVEL 29 MEQ/L (21-32); CHLORIDE LEVEL 107 MEQ/L (98-107); CREATININE FOR GFR 0.89 MG/DL (0.55-1.02); GLOMERULAR FILTRATION RATE > 60.0 (>32); GLUCOSE, FASTING 90 MG/DL (83-110); POTASSIUM SERUM 3.7 MEQ/L (3.5-5.1); SODIUM LEVEL 141 MEQ/L (136-145); TOTAL PROTEIN 5.6 GM/DL (6.4-8.2)
[2016-12-27] MEDS: FERROUS SULFATE 325MG TAB PO SCH ×2 (09:18→20:48)
[2016-12-27] MEDS: ASCORBIC ACID 500 MG TAB PO SCH ×2 (09:18→20:48)
[2016-12-27] MEDS: DOCUSATE SODIUM 100 MG CAP PO SCH ×2 (09:18→20:49)
[2016-12-27] MEDS: MIRALAX *UNIT DOSE* 17GM PACKET PO SCH (09:18)
--- NOTE | 2016-12-27 11:36 | IPNPDOC ---
Subjective Date Seen The patient was seen on 12/27/16. Subjective Chief Complaint/HPI The patient is a 81-year-old female admitted with a reason for visit of Hip Fracture. Events since last encounter Hgb 6.8 this am. Ordered for transfusion 2 units this am. Doing well with PT. plan on DC to [facility] rehab tomorrow pending results of transfusion. Constitutional: Reports: Fatigue Pulmonary: Denies: Dyspnea, Cough Cardiovascular: Denies: Chest Pain, Palpitations, Orthopnea, Paroxysmal Noc. Dyspnea, Lt Headedness Gastrointestinal: Denies: Nausea, Vomiting, Abdominal Pain, Diarrhea, Constipation, Melena Objective Physical Examination General Exam: Positive: Alert, Cooperative, No Acute Distress Eye Exam: Positive: PERRLA, Conjunctiva & lids normal, EOMI ENT Exam: Positive: Atraumatic, Mucous membr. moist/pink Neck Exam: Positive: Supple Chest Exam: Positive: Clear to auscultation, Normal air movement Heart Exam: Positive: Rate Normal, Regular Rhythm, Normal S1, Normal S2, Negative: Murmurs Abdomen Exam: Positive: Normal bowel sounds, Soft, Negative: Tenderness Extremity Exam: Positive: Tenderness (Left hip diffusely tender to palpation), Negative: Clubbing, Cyanosis, Edema, Swelling Skin Exam: Positive: Rash (erythematous moist rash under right breast), Negative: Breakdown Neuro Exam: Positive: Normal Speech, Strength at 5/5 X4 ext, Normal Tone, Sensation Intact, Cranial Nerves 3-12 NL Psych Exam: Positive: Mood NL, Oriented x 3 (To person, place; not to situation or recent events) Assessment /Plan Problems (1) Anemia Status: Acute Problem Text: 12/27 6.8 c MCV stable at 95; therefore, transfuse 2 units RBC. repeat CBC 1 hour post tranfusion and check CT AP for other source 12/26 8.3 12/25 8.1-[id number]-ohvcf surgical loss/dilutional (but only up 1.7L since admission)-tx if <8; given VKA 5 by Ortho 12/24 12.1 11/22/16 hgb 11.0-baseline 12/26 12% (SI 20, 172) c ferritin 479 (APR) prior on asa 81 for AF 12/27 HO x 1 - ( medium brown Gardiner 5 BM per nursing) 04/2011 sigmoid losis per colonoscopy-Sharita 12/27 2.4 12/24/16 INR 1.1 (2) Hip fracture Status: Acute Response to Treatment: Stable Problem Specific Plan: Consult Specialist Problem Text: POD 3 Closed reduction and placement of cephalomedullary nail for left hip fracture- Franco - Percocet for moderate pain, morphine for severe pain - Holding aspirin prior to surgery (3) Hypertension Status: Chronic Response to Treatment: Stable Problem Text: 12/26/16: elevated this am. May be pain related with recent surgery. monitor. Encouraged nursing staff to offer pain medication/assess pain routinely on no BP meds baseline (4) Depression Status: Chronic Response to Treatment: Stable Problem Text: Continue escitalopram (5) Hypothyroidism Problem Text: Continue levothyroxine 100 (6) Paroxysmal a-fib Status: Chronic Problem Text: asa 81 for anti-platelet nothing for rate-control (7) JF (acute kidney injury) Status: Acute Problem Text: 12/25 1.1-t/f 12/24 cr 0.8-baseline (8) Leukocytosis Status: Resolved Problem Text: afebrile-no s/s of focal infection 12/25 10.4 12/24 11.2K Plan/VTE VTE Prophylaxis Ordered?: Yes (SCD/TEDs) Plan/Urinary Catheter Reason for insertion/continuin: Perioperative VS, I&O, 24H, Fishbone Vital Signs/I&O Vital Signs Date Time Temp Pulse Resp B/P (MAP) Pulse Ox O2 Delivery O2 Flow Rate FiO2 12/27/16 06:00 98.8 67 18 158/70 (99) 96 Room Air 12/25/16 08:00 2.0 I&O- Last 24 Hours up to 6 AM 12/27/16 06:00 Intake Total 400 ml Output Total 500 ml Balance -100 ml Laboratory Data 24H LABS Laboratory Tests 2 12/27/16 05:49: White Blood Count 6.4, Red Blood Count 2.11L, Hemoglobin 6.8*L, Hematocrit 20.1L , Mean Corpuscular Volume 95.1, Mean Corpuscular Hemoglobin 32.4, Mean Corpuscular Hemoglobin Concent 34.1, Red Cell Distribution Width 13.7, Platelet Count 150, Neutrophils (%) (Auto) 71.4H, Lymphocytes (%) (Auto) 12.4L, Monocytes (%) (Auto) 8.1H, Eosinophils (%) (Auto) 5.7H, Basophils (%) (Auto) 0.3 , Neutrophils # (Auto) 4.6, Lymphocytes # (Auto) 0.9L, Monocytes # (Auto) 0.5, Eosinophils # (Auto) 0.4, Basophils # (Auto) 0.0, Large Unclassified Cells % 2.1 , Large Unclassified Cells # 0.1, Prothrombin Time 26.9H, Prothromb Time International Ratio 2.38, Anion Gap 5L, Glomerular Filtration Rate > 60.0, Blood Urea Nitrogen 17, Creatinine 0.89, Sodium Level 141, Potassium Level 3.7, Chloride Level 107, Carbon Dioxide Level 29, Calcium Level 8.1L, Aspartate Amino Transf (AST/SGOT) 18, Alanine Aminotransferase (ALT/SGPT) 17, Alkaline Phosphatase 55, Total Bilirubin 0.5, Total Protein 5.6L, Albumin 2.4L, Albumin/ Globulin Ratio 0.75L CBC/BMP Laboratory Tests 12/27/16 05:49 Red Blood Count 2.11 L, Mean Corpuscular Volume 95.1, Mean Corpuscular Hemoglobin 32.4, Mean Corpuscular Hemoglobin Concent 34.1, Red Cell Distribution Width 13.7, Neutrophils (%) (Auto) 71.4 H, Lymphocytes (%) (Auto) 12.4 L, Monocytes (%) (Auto) 8.1 H, Eosinophils (%) (Auto) 5.7 H, Basophils (%) (Auto) 0.3, Neutrophils # (Auto) 4.6, Lymphocytes # (Auto) 0.9 L, Monocytes # ( Auto) 0.5, Eosinophils # (Auto) 0.4, Basophils # (Auto) 0.0, Calcium Level 8.1 L , Aspartate Amino Transf (AST/SGOT) 18, Alanine Aminotransferase (ALT/SGPT) 17, Alkaline Phosphatase 55, Total Bilirubin 0.5, Total Protein 5.6 L, Albumin 2.4 L Jodi Mcallister Dec 27, 2016 11:36 Artis Solano M.D. Dec 27, 2016 15:48
[2016-12-27 14:00] VITALS: BP 157/66
[2016-12-27] MEDS ORDERED: GASTROGRAFIN SOLUTION 30ML PO ONE (18:00)
[2016-12-27] MEDS ORDERED: GASTROGRAFIN SOLUTION 30ML (Q9963) PO ONE (18:30)
[2016-12-27] MEDS ORDERED: FUROSEMIDE 20 MG/2 ML VIAL (J1940) IV ONE (19:00)
[2016-12-27] MEDS ORDERED: ISOVUE-370 76% 100ML VIAL (Q9967) As Ordered ONE (19:38)
[2016-12-27] MEDS: ESCITALOPRAM OXALATE 10 MG TAB (LEXAPRO) PO SCH (20:48)
--- NOTE | 2016-12-27 21:10 | REPUSA ---
CT of the abdomen and pelvis with contrast Clinical statement: Pain. Technique: Multiple axial CT images were obtained from the base of the lungs through the floor of the pelvis utilizing 5 mm axial slices after administration of oral and nonionic intravenous contrast. C oronal and sagittal reconstructions were also obtained. Comparison: 11/24/2015. Findings: Chest: The visualized lung bases are clear. Abdomen: The liver, spleen, pancreas, kidneys, gallbladder, and adrenal glands are unremarkable. A 1. 7 x 1.8 cm hyperdense lesion in the posterior left kidney corresponds to a cyst seen on the prior exa mination. The aorta demonstrates moderate diffuse atherosclerosis, without evidence of aneurysm or di ssection. There is no evidence of abdominal lymphadenopathy or ascites. Pelvis: Moderate amount of stool fills the colon. The bowel is otherwise unremarkable, with no obstru ctive or inflammatory changes. The urinary bladder is within normal limits. The other pelvic structur es appear grossly intact. There is no evidence of pelvic lymphadenopathy or ascites. Bones: There are no suspicious osseous abnormalities seen. Severe multilevel degenerative disc diseas e is noted throughout the spine. This open reduction internal fixation of the proximal left femur. Impression: 1. Mild constipation. No obstructive or inflammatory bowel changes. 2. Cystic lesions in the kidneys bilaterally. 3. Moderate diffuse atherosclerosis of the abdominal aorta without evidence of aneurysm or dissection . 4. Stable severe degenerative changes in the spine and left femur.
[2016-12-27 21:12] LABS: BASO % 0.5 % (0.0-1.0); EOS # 0.5 K/mm3 (0.0-0.50); EOS % 6.3 % (0.0-3.0); LARGE UNSTAINED CELL # 0.2 K/mm3 (0.0-0.4); LARGE UNSTAINED CELL % 2.2 % (0.0-4.0); LYMPH # 1.2 K/mm3 (1.5-4.5); LYMPH % 13.1 % (24.0-44.0); MEAN CORPUSCULAR HGB CONC 34.7 g/dl (32.0-36.5); MEAN CORPUSCULAR VOLUME 92.4 fl (80.0-96.0); MONO # 0.7 K/mm3 (0.0-0.8); MONO % 8.8 % (0.0-5.0); NEUTROPHILS # 5.4 K/mm3 (1.8-7.7); NEUTROPHILS % 69.1 % (36.0-66.0); PLATELET COUNT, AUTOMATED 182 k/mm3 (150-450); RED CELL DISTRIBUTION WIDTH 14.7 % (11.5-14.5); WHITE BLOOD COUNT 7.8 K/mm3 (4.0-10.0)
[2016-12-27 22:00] VITALS: BP 150/72
[2016-12-28 06:00] VITALS: BP 168/72
[2016-12-28] MEDS: LEVOTHYROXINE 100MCG TABLET (0.1MG) PO SCH (06:17)
[2016-12-28] MEDS: ACETAMINOPHEN TAB 650MG DOSE (2X325MG) PO PRN ×2 (06:18→11:05)
[2016-12-28 06:21] LABS: BASO % 0.6 % (0.0-1.0); EOS # 0.5 K/mm3 (0.0-0.50); EOS % 6.3 % (0.0-3.0); LARGE UNSTAINED CELL # 0.2 K/mm3 (0.0-0.4); LARGE UNSTAINED CELL % 2.8 % (0.0-4.0); LYMPH # 0.9 K/mm3 (1.5-4.5); LYMPH % 10.1 % (24.0-44.0); MEAN CORPUSCULAR HEMOGLOBIN 31.5 pg (27.0-33.0); MEAN CORPUSCULAR VOLUME 92.7 fl (80.0-96.0); MONO # 0.6 K/mm3 (0.0-0.8); MONO % 6.9 % (0.0-5.0); NEUTROPHILS # 6.3 K/mm3 (1.8-7.7); NEUTROPHILS % 73.2 % (36.0-66.0); PLATELET COUNT, AUTOMATED 195 k/mm3 (150-450); RED CELL DISTRIBUTION WIDTH 14.8 % (11.5-14.5); WHITE BLOOD COUNT 8.6 K/mm3 (4.0-10.0)
[2016-12-28 06:43] LABS: ANION GAP 8 MEQ/L (8-16); BLOOD UREA NITROGEN 15 MG/DL (7-18); CALCIUM LEVEL 8.3 MG/DL (8.8-10.2); CARBON DIOXIDE LEVEL 25 MEQ/L (21-32); CHLORIDE LEVEL 102 MEQ/L (98-107); CREATININE FOR GFR 0.73 MG/DL (0.55-1.02); GLOMERULAR FILTRATION RATE > 60.0 (>32); GLUCOSE, FASTING 101 MG/DL (83-110); POTASSIUM SERUM 3.6 MEQ/L (3.5-5.1); SODIUM LEVEL 135 MEQ/L (136-145)
[2016-12-28 06:44] LABS: INR 1.82
[2016-12-28] MEDS: DOCUSATE SODIUM 100 MG CAP PO SCH (08:46)
[2016-12-28] MEDS: MIRALAX *UNIT DOSE* 17GM PACKET PO SCH (08:47)
[2016-12-28] MEDS: FERROUS SULFATE 325MG TAB PO SCH (08:47)
[2016-12-28] MEDS: ASCORBIC ACID 500 MG TAB PO SCH (08:47)
--- NOTE | 2016-12-29 15:50 | DSES ---
DATE OF ADMISSION: 12/24/2016 DATE OF DISCHARGE: 12/28/2016 ATTENDING PHYSICIAN: Dr. Artis Solano PRIMARY CARE PROVIDER: Dr. Malik Ureña at [facility] HISTORY OF PRESENT ILLNESS: This is an 81-year-old resident of [facility] who was brought in after an unwitnessed fall in her room. It did not appear that the patient hit her head or had any syncope or loss of consciousness. The patient sustained a left hip fracture secondary to mechanical fall. She is currently admitted for orthopedic consultation and surgical correction. HOSPITALIZATION COURSE: The patient is status post placement of intramedullary cephalomedullary nail system/Synthes TFN nail. Estimated blood loss during surgery was less than 50 mL. The patient continued to improve regarding her physical mobility throughout the hospitalization and was prepared for discharge on 12/27/2016; however, hemoglobin dropped to 6.8. The patient was transfused 2 units of packed red cells and her hemoglobin has improved to 11.6 one post transfusion and then again this morning her hemoglobin is stable at 11.8. We did obtain a stool for occult blood and that was negative. The patient shows no other signs of any abnormalities. No abdominal pain, blurred vision, dizziness, shortness of breath, or other signs of bleeding. It is presumed that this is surgical blood loss. Today, hemoglobin is as already stated. Renal function is stable with a GFR well above 60 and a creatinine of 0.73, 3.6, INR is 1.82, as her warfarin as held yesterday secondary to her anemia. Imaging includes emergency department workup of a left hip fracture and also CT abdomen and pelvis secondary to the patient's significant anemia. This showed mild constipation, moderate diffuse atherosclerosis of the abdominal aorta without evidence of aneurysm or dissection and stable severe degenerative changes of the spine and left femur. PHYSICAL EXAMINATION: HEENT: Neck is supple without lymphadenopathy or jugular venous distention (JVD). CARDIOVASCULAR: Heart rate and rhythm are regular. PULMONARY: Lungs are clear. ABDOMEN: Soft and nontender. EXTREMITIES: Bilateral lower extremities are without any edema. DISCHARGE DIAGNOSES: 1. Left trochanteric hip fracture status post surgical revision with Dr. Payam Franco. 2. Acute surgical blood loss anemia. SECONDARY DIAGNOSES: 1. Dementia. 2. Hypothyroidism. 3. Hypertension. 4. Paroxysmal atrial fibrillation. 5. Chronic obstructive pulmonary disease (COPD). 6. Generalized muscle weakness and difficulty walking. PLAN: The patient will be discharged back to [facility] and will receive some rehabilitation services there. She will followup with orthopedics as indicated. Activity as tolerated and indicated by orthopedics. Diet is as tolerated. MEDICATIONS: As follows: - tramadol 50 mg one to two tablets by mouth every 4 hours as needed for pain - Coumadin 2.5 mg by mouth daily and continue Coumadin 2.5 mg by mouth daily through 01/24/2017 with a target INR of 2.0. The patient will followup with Dr. Payam Franco on 01/09/2017 at 10:30 a.m. - acetaminophen 325 mg by mouth every 4 hours as needed for pain - acetaminophen 650 mg per rectum every 4 hours as needed for pain or fever - Aspercreme topically every 2 hours as needed for pain - aspirin 81 mg chewable by mouth daily - Dulcolax 10 mg suppository per rectum daily - B12 500 mcg by mouth daily - Enema per rectum daily as needed for constipation - Lexapro 10 mg by mouth at night - Levothyroxine 100 mcg by mouth daily - menthol lozenges every 1 hour as needed for cough - milk of magnesia 30 mL by mouth daily as needed for constipation - multivitamin one tablet daily - Senna plus one tablet by mouth daily - Super B 100 one tablet by mouth daily The patient is discharged in stable and satisfactory condition.
== END 2016-12-28 11:56 | DRG 481 ==
LOC: M ED 09:52 → M ED INP 13:28 → M MS5PR 19:35
PROVIDERS: ADMIT Family Medicine; ATTEND Family Medicine
PROC: 0QS704Z Reposition Left Upper Femur with Internal Fixation Device, Open Approach (ICD-10-PCS; principal; 2016-12-24 10:44)
PROC: 30253N1 (ICD-10-PCS; 2016-12-27)
DX: S72.142A Displaced intertrochanteric fracture of left femur, initial encounter for closed fracture (principal); E44.0 Moderate protein-calorie malnutrition; N17.9 Acute kidney failure, unspecified; D62 Acute posthemorrhagic anemia; W19.XXXA Unspecified fall, initial encounter; Y92.122 Bedroom in nursing home as the place of occurrence of the external cause; Y99.8 Other external cause status; R26.81 Unsteadiness on feet; M62.81 Muscle weakness (generalized); F32.9 Major depressive disorder, single episode, unspecified; E55.9 Vitamin D deficiency, unspecified; G30.9 Alzheimer's disease, unspecified; F02.80 Dementia in other diseases classified elsewhere, unspecified severity, without behavioral disturbance, psychotic disturbance, mood disturbance, and anxiety; E03.9 Hypothyroidism, unspecified; D72.829 Elevated white blood cell count, unspecified; I10 Essential (primary) hypertension; I48.0 Paroxysmal atrial fibrillation; J44.9 Chronic obstructive pulmonary disease, unspecified; Z87.891 Personal history of nicotine dependence; Z88.0 Allergy status to penicillin; Z79.82 Long term (current) use of aspirin; Z79.899 Other long term (current) drug therapy

== ENCOUNTER → 2016-12-24 | Outpatient (REF) | payer MEDICARE ==
[~2016-12-24] MED LIST changes: +ACET650S3 PR; +ASPE10LO TOP; +ASPI81CH3 PO; +DULC10SU2 PR; +ENEMENE6 PR; +LEXA1TAB PO; +MILKSUS PO; +SENN1TAB2 PO; +SUPETAB PO; +SYNT100T PO; +TRAM50TA2 PO; +VITA500T3 PO; +VITMTA PO; +[UNRECOGNIZED DRUG - CODE] MT
--- NOTE | 2016-12-24 10:21 | REP ---
Left mid and distal femur. Mineralization is normal. There is no fracture or dislocation. There are calcifications in the soft tissues medially, possibly phleboliths. Otherwise, negative mid and distal left femur. Signed by Angel Timmons MD 12/24/2016 10:12 A
--- NOTE | 2016-12-24 10:22 | REP ---
Left hip two views: There is an intertrochanteric fracture. There is no dislocation. Demineralization is noted. The study is otherwise unremarkable. Impression: Intertrochanteric fracture. Signed by Angel Timmons MD 12/24/2016 10:13 A
== END ==
LOC: SKLAB8 08:00
DX: S72.145A Nondisplaced intertrochanteric fracture of left femur, initial encounter for closed fracture (principal); W01.0XXA Fall on same level from slipping, tripping and stumbling without subsequent striking against object, initial encounter; Y92.129 Unspecified place in nursing home as the place of occurrence of the external cause; Y93.01 Activity, walking, marching and hiking; Y99.9 Unspecified external cause status

== ENCOUNTER → 2016-12-29 | Outpatient (REF) ==
[~2016-12-29] MED LIST changes: +ACET650S3 PR; +ASPE10LO TOP; +ASPI81CH3 PO; +DULC10SU2 PR; +ENEMENE6 PR; +LEXA1TAB PO; +MILKSUS PO; +SENN1TAB2 PO; -SENOKOT S TAB PO SCH; +SUPETAB PO; +SYNT100T PO; +TRAM50TA2 PO; +VITA500T3 PO; +VITMTA PO; +[UNRECOGNIZED DRUG - CODE] MT
--- NOTE | 2016-12-30 07:27 | REP ---
LEFT HIP: Three views of the left hip are performed. Intramedullary rakel is seen in the proximal left femur. The rakel extends through the intertrochanteric region and there is a metallic screw in the proximal femur as well. There is an intertrochanteric fracture of the proximal left femur as seen on prior images 12/24/2016. Metallic skin edmond are seen laterally. Alignment of the osseous structures appears unchanged compared to the prior intraoperative films. IMPRESSION: Metallic internal fixation for intertrochanteric fracture of the proximal left femur. No change in alignment compared to the prior intraoperative films of 12/24/2016. Signed by Angel Burris MD 12/30/2016 07:24 P
--- NOTE | 2016-12-30 07:33 | REP ---
LEFT RIB SERIES: Four views of the left ribs performed. There is no fracture or bone lesion. An accompanying view of the chest demonstrates no acute infiltrate. The heart is normal in size. There is calcification of the thoracic aorta. IMPRESSION: Negative left rib series. Signed by Angel Burris MD 12/30/2016 07:24 P
== END ==
LOC: M RAD 14:41
DX: M25.552 Pain in left hip (principal); Z96.9 Presence of functional implant, unspecified

== ENCOUNTER → 2016-12-29 | Outpatient (REF) | payer MEDICARE ==
[2016-12-29 07:51] LABS: INR 1.96
== END ==
LOC: SKLAB8 07:00
DX: Z51.81 Encounter for therapeutic drug level monitoring (principal); Z79.01 Long term (current) use of anticoagulants

== ENCOUNTER → 2016-12-31 | Outpatient (REF) | payer MEDICARE ==
[2016-12-31 09:14] LABS: INR 1.9
[2016-12-31 09:29] LABS: MEAN CORPUSCULAR HEMOGLOBIN 33.9 pg (27.0-33.0); MEAN CORPUSCULAR HGB CONC 35.1 g/dl (32.0-36.5); MEAN CORPUSCULAR VOLUME 96.6 fl (80.0-96.0); RED CELL DISTRIBUTION WIDTH 14.6 % (11.5-14.5)
== END ==
LOC: SKLAB8 07:00
DX: Z51.81 Encounter for therapeutic drug level monitoring (principal); Z79.01 Long term (current) use of anticoagulants

== ENCOUNTER → 2017-01-03 | Outpatient (REF) | payer MEDICARE ==
[2017-01-03 08:40] LABS: INR 2.06
== END ==
LOC: SKLAB8 07:00
PROVIDERS: ATTEND Nurse Practitioner Adult Health
DX: Z51.81 Encounter for therapeutic drug level monitoring (principal); Z79.01 Long term (current) use of anticoagulants

== ENCOUNTER → 2017-01-10 | Outpatient (REF) | payer MEDICARE ==
[2017-01-10 08:42] LABS: INR 1.76
== END ==
LOC: SKLAB8 07:00
PROVIDERS: ATTEND Nurse Practitioner Adult Health
DX: Z51.81 Encounter for therapeutic drug level monitoring (principal); Z79.01 Long term (current) use of anticoagulants

== ENCOUNTER → 2017-01-17 | Outpatient (REF) | payer MEDICARE ==
[2017-01-17 13:06] LABS: INR 1.76
== END ==
LOC: SKLAB8 07:00
PROVIDERS: ATTEND Nurse Practitioner Adult Health
DX: Z51.81 Encounter for therapeutic drug level monitoring (principal); Z79.01 Long term (current) use of anticoagulants

== ENCOUNTER → 2017-01-24 | Outpatient (REF) | payer MEDICARE | LOC: SKLAB8 07:00 | DX: Z51.81 Encounter for therapeutic drug level monitoring (principal); Z53.9 Procedure and treatment not carried out, unspecified reason ==

== ENCOUNTER → 2017-03-04 | Outpatient (REF) | payer MEDICARE ==
[2017-03-04 14:52] LABS: MEAN CORPUSCULAR HEMOGLOBIN 31.9 pg (27.0-33.0); MEAN CORPUSCULAR HGB CONC 33.3 g/dl (32.0-36.5); MEAN CORPUSCULAR VOLUME 95.8 fl (80.0-96.0); PLATELET COUNT, AUTOMATED 238 10^3/uL (150-450); RED CELL DISTRIBUTION WIDTH 12.8 % (11.5-14.5); WHITE BLOOD COUNT 9.9 10^3/uL (4.0-10.0)
[2017-03-04 15:01] LABS: ADD MANUAL DIFFER YES; DIFF SLIDE NUMBER 235
[2017-03-04 15:08] LABS: CALCIUM LEVEL 8.5 MG/DL (8.8-10.2); CREATININE FOR GFR 0.97 MG/DL (0.55-1.02); GLOMERULAR FILTRATION RATE 58.4 (>32); POTASSIUM SERUM 3.5 MEQ/L (3.5-5.1)
[2017-03-04 15:43] LABS: BASOPHILS 1 % (0-4); EOSINOPHILS 2 % (0-5)
== END ==
LOC: SKLAB8 08:00
DX: R50.9 Fever, unspecified (principal)

== ENCOUNTER → 2017-10-24 | Outpatient (REF) | payer MEDICARE ==
[2017-10-24 08:47] LABS: HEMATOCRIT 33.6 % (36.0-47.0); HEMOGLOBIN 11.1 g/dl (12.0-15.5); MEAN CORPUSCULAR HEMOGLOBIN 31.8 pg (27.0-33.0); MEAN CORPUSCULAR VOLUME 96.3 fl (80.0-96.0); PLATELET COUNT, AUTOMATED 208 10^3/uL (150-450); RED BLOOD COUNT 3.49 10^6/uL (4.00-5.40); RED CELL DISTRIBUTION WIDTH 12.5 % (11.5-14.5); WHITE BLOOD COUNT 6.6 10^3/uL (4.0-10.0)
[2017-10-24 10:10] LABS: ANION GAP 6 MEQ/L (8-16); BLOOD UREA NITROGEN 21 MG/DL (7-18); CALCIUM LEVEL 8.6 MG/DL (8.8-10.2); CARBON DIOXIDE LEVEL 29 MEQ/L (21-32); CHLORIDE LEVEL 110 MEQ/L (98-107); CREATININE FOR GFR 0.85 MG/DL (0.55-1.30); GLOMERULAR FILTRATION RATE > 60.0 (>32); GLUCOSE, FASTING 87 MG/DL (70-100); POTASSIUM SERUM 4.5 MEQ/L (3.5-5.1); SODIUM LEVEL 145 MEQ/L (136-145)
== END ==
LOC: SKLAB8 07:00
DX: E03.9 Hypothyroidism, unspecified (principal)
CPT/HCPCS: 84443

== ENCOUNTER → 2018-02-24 | Outpatient (REF) | payer MEDICARE ==
[2018-02-24 10:22] LABS: HEMATOCRIT 32.1 % (36.0-47.0); HEMOGLOBIN 10.7 g/dl (12.0-15.5); MEAN CORPUSCULAR HEMOGLOBIN 32.4 pg (27.0-33.0); MEAN CORPUSCULAR HGB CONC 33.3 g/dl (32.0-36.5); MEAN CORPUSCULAR VOLUME 97.3 fl (80.0-96.0); PLATELET COUNT, AUTOMATED 153 10^3/uL (150-450); WHITE BLOOD COUNT 4.7 10^3/uL (4.0-10.0)
[2018-02-24 10:55] LABS: ALBUMIN 2.7 GM/DL (3.2-5.2); ALBUMIN/GLOBULIN RATIO 0.93 (1.00-1.93); ALKALINE PHOSPHATASE 44 U/L (45-117); ALT/SGPT 8 U/L (12-78); ANION GAP 8 MEQ/L (8-16); AST/SGOT 13 U/L (7-37); BILIRUBIN,TOTAL 0.4 MG/DL (0.2-1.0); BLOOD UREA NITROGEN 14 MG/DL (7-18); CALCIUM LEVEL 8.4 MG/DL (8.8-10.2); CARBON DIOXIDE LEVEL 29 MEQ/L (21-32); CHLORIDE LEVEL 109 MEQ/L (98-107); CREATININE FOR GFR 0.71 MG/DL (0.55-1.30); GLOMERULAR FILTRATION RATE > 60.0 (>32); GLUCOSE, FASTING 78 MG/DL (70-100); POTASSIUM SERUM 4.1 MEQ/L (3.5-5.1); SODIUM LEVEL 146 MEQ/L (136-145); TOTAL PROTEIN 5.6 GM/DL (6.4-8.2)
== END ==
LOC: M LAB 03:38
DX: N18.9 Chronic kidney disease, unspecified (principal); D64.9 Anemia, unspecified
CPT/HCPCS: 80053

== ENCOUNTER → 2018-03-13 | Outpatient (REF) | payer MEDICARE ==
[2018-03-13 10:32] LABS: TOTAL 25(OH) VITAMIN D 32.8 NG/ML (30.0-100.0)
== END ==
LOC: SKLAB8 07:00
DX: E53.8 Deficiency of other specified B group vitamins (principal); E55.9 Vitamin D deficiency, unspecified
CPT/HCPCS: 82607

== ENCOUNTER → 2018-04-24 | Outpatient (REF) | payer MEDICARE ==
[2018-04-24 09:35] LABS: HEMATOCRIT 35.9 % (36.0-47.0); HEMOGLOBIN 11.5 g/dl (12.0-15.5); MEAN CORPUSCULAR HEMOGLOBIN 31.7 pg (27.0-33.0); MEAN CORPUSCULAR VOLUME 98.9 fl (80.0-96.0); PLATELET COUNT, AUTOMATED 286 10^3/uL (150-450); RED BLOOD COUNT 3.63 10^6/uL (4.00-5.40); RED CELL DISTRIBUTION WIDTH 12.9 % (11.5-14.5); WHITE BLOOD COUNT 7.1 10^3/uL (4.0-10.0)
[2018-04-24 10:13] LABS: ANION GAP 5 MEQ/L (8-16); BLOOD UREA NITROGEN 20 MG/DL (7-18); CALCIUM LEVEL 9.3 MG/DL (8.8-10.2); CARBON DIOXIDE LEVEL 31 MEQ/L (21-32); CHLORIDE LEVEL 106 MEQ/L (98-107); CREATININE FOR GFR 1.13 MG/DL (0.55-1.30); GLOMERULAR FILTRATION RATE 48.8 (>32); GLUCOSE, FASTING 189 MG/DL (70-100); POTASSIUM SERUM 4.2 MEQ/L (3.5-5.1); SODIUM LEVEL 142 MEQ/L (136-145)
== END ==
LOC: SKLAB8 07:00
DX: F03.90 Unspecified dementia, unspecified severity, without behavioral disturbance, psychotic disturbance, mood disturbance, and anxiety (principal); E03.9 Hypothyroidism, unspecified; D64.9 Anemia, unspecified
CPT/HCPCS: 84443

== ENCOUNTER → 2018-10-01 | Outpatient (REF) | payer MEDICARE ==
[~2018-10-01] MED LIST changes: -ASPI1TAB PO; -ASPI81CH PO; -ASPI81CH3 PO; +ASPI81CH48 PO; +ASPI81CH49 PO; +ASPI81TA26 PO; +HYDR-3715 PO; +MILK120011 PO; -MILKSUS PO; -NORCOTAB PO; -SENN1TAB2 PO; +SENN1TAB40 PO; -VITA100T20 PO; +VITA100T51 PO; +VITA500L4 SL; -[UNRECOGNIZED DRUG - CODE] SL
[2018-10-02 08:24] LABS: HEMATOCRIT 38.5 % (36.0-47.0); HEMOGLOBIN 12.3 g/dl (12.0-15.5); MEAN CORPUSCULAR HEMOGLOBIN 31.1 pg (27.0-33.0); MEAN CORPUSCULAR HGB CONC 31.9 g/dl (32.0-36.5); MEAN CORPUSCULAR VOLUME 97.5 fl (80.0-96.0); PLATELET COUNT, AUTOMATED 185 10^3/uL (150-450); RED BLOOD COUNT 3.95 10^6/uL (4.00-5.40); WHITE BLOOD COUNT 6.1 10^3/uL (4.0-10.0)
[2018-10-02 08:51] LABS: THYROID STIMULATING HORMONE 6.09 uIU/ML (0.358-3.740)
== END ==
LOC: SKLAB8 07:00
DX: E03.9 Hypothyroidism, unspecified (principal); E53.8 Deficiency of other specified B group vitamins; Z87.2 Personal history of diseases of the skin and subcutaneous tissue

== ENCOUNTER → 2018-10-23 | Outpatient (REF) | payer MEDICARE ==
[2018-10-23 08:00] LABS: HEMOGLOBIN 11.9 g/dl (12.0-15.5); MEAN CORPUSCULAR HEMOGLOBIN 31.9 pg (27.0-33.0); MEAN CORPUSCULAR HGB CONC 32.2 g/dl (32.0-36.5); MEAN CORPUSCULAR VOLUME 99.2 fl (80.0-96.0); PLATELET COUNT, AUTOMATED 174 10^3/uL (150-450); RED BLOOD COUNT 3.73 10^6/uL (4.00-5.40); WHITE BLOOD COUNT 5.1 10^3/uL (4.0-10.0)
[2018-10-23 08:26] LABS: CALCIUM LEVEL 9.1 MG/DL (8.8-10.2); CREATININE FOR GFR 1.02 MG/DL (0.55-1.30); POTASSIUM SERUM 3.7 MEQ/L (3.5-5.1); THYROID STIMULATING HORMONE 5.35 uIU/ML (0.358-3.740)
== END ==
LOC: SKLAB8 07:00
DX: I50.9 Heart failure, unspecified (principal); E07.9 Disorder of thyroid, unspecified

== ENCOUNTER → 2018-11-14 | Outpatient (REF) | payer MEDICARE | LOC: SKLAB8 07:00 | DX: E07.9 Disorder of thyroid, unspecified (principal) ==

== ENCOUNTER → 2019-01-10 | Outpatient (REF) | payer MEDICARE ==
[~2019-01-10] MED LIST changes: +CYAN500T8 PO; -VITA500T3 PO
== END ==
LOC: SKLAB8 08:14
DX: E55.9 Vitamin D deficiency, unspecified (principal)

== ENCOUNTER → 2019-01-19 | Outpatient (REF) | payer MEDICARE ==
[~2019-01-19] MED LIST changes: +SENN-53 PO; -SENN1TAB40 PO
[2019-01-19 08:20] LABS: BASO % 0.7 % (0.0-1.0); EOS # 0.5 10^3/uL (0.0-0.50); EOS % 7.8 % (0.0-3.0); HEMATOCRIT 38.8 % (36.0-47.0); HEMOGLOBIN 12.8 g/dl (12.0-15.5); LYMPH % 16.1 % (24.0-44.0); MEAN CORPUSCULAR HEMOGLOBIN 32.2 pg (27.0-33.0); MEAN CORPUSCULAR VOLUME 97.5 fl (80.0-96.0); MONO # 0.7 10^3/uL (0.0-0.8); NEUTROPHILS # 3.9 10^3/uL (1.8-7.7); NEUTROPHILS % 62.7 % (36.0-66.0); PLATELET COUNT, AUTOMATED 182 10^3/uL (150-450); RED BLOOD COUNT 3.98 10^6/uL (4.00-5.40); WHITE BLOOD COUNT 6.2 10^3/uL (4.0-10.0)
[2019-01-19 08:37] LABS: ALT/SGPT 9 U/L (12-78); BILIRUBIN,TOTAL 0.4 MG/DL (0.2-1.0); BLOOD UREA NITROGEN 15 MG/DL (7-18); CALCIUM LEVEL 8.6 MG/DL (8.8-10.2); CARBON DIOXIDE LEVEL 26 MEQ/L (21-32); CHLORIDE LEVEL 110 MEQ/L (98-107); CREATININE FOR GFR 0.89 MG/DL (0.55-1.30); GLOMERULAR FILTRATION RATE > 60.0 (>32); GLUCOSE, FASTING 88 MG/DL (70-100); SODIUM LEVEL 144 MEQ/L (136-145); TOTAL PROTEIN 6.4 GM/DL (6.4-8.2)
--- NOTE | 2019-02-05 18:44 | SKHPN ---
[facility] Progress Note Progress Note SUBJECTIVE: Molly is an 82 yo female who was seen in her room on wheelchair. Patient's mood appears to be stable; denies any complaints including fever, chills, chest pain, SOB, palpitation, abdominal pain, or nausea. Patient seems to have hallucination at time of examination thinking that there was weathers on the floor. OBJECTIVE: PHYSICAL EXAMINATION: VITAL SIGNS: 02/05/19 Temp 98.3, BP 114/70, R 20, HR 76, Ox sat 97% on RA. General: Pt is A&O to name. Pt thought she is in [place]. Cooperative and not in acute distress HEENT: Head normocephalic, atraumatic. No obvious conjunctiva injection noted. Cardiac: Normal S1, S2. No murmurs. Respiratory: Clear to auscultation. No wheezing, rales, or rhonchi. Abdomen: Soft, nondistended. No tenderness upon palpation SKIN: No obvious erythema or rash noted Extremity: No lower extremity edema, no tenderness upon palpation Psych: Mood appears to be stable and appro to situation. Visual hallucinations LABORATORY DATA: CBC 01/19 WBC 6.2, Hg 12.8, Hct 38.8, Plt 182 BMP 01/19 Na 144, K 4, Cl 110, BUN 15, Creat 0.89, Glucose 88 ASSESSMENT AND PLAN: 1. Dementia. Delusions stable, behaviors controlled. Non-threatening hallucinations. 2. Vitamin D insufficiency. 1,25(OH) VitD level 23.8. Last vit D level 03/2018 was 32.8. Increase daily vitamin D supplement from 800IU to 1000IU daily. 2. History of falls. No recent serious falls, fall risk. 3. Unsteady gait, low bed, mostly wheelchair bound. Patient is able to walk a short distance with cane and assist; pt is able to transfer from bed to wheelchair with assist. 4. Chronic anemia, resolved. Hg 11.9 in 2018 increased to 12.8 in 01/19/19. CBC in 2 weeks ordered 5. History of Vitamin B12 deficiency. Most recent B12 level September 2018 was within normal range. 6. Depression, continue with Remeron 30mg QHS. It was noted that pt also had some mild hallucinations during examinations but no combative behavior noted. Patient mood appeared to be stable. Continue to monitor. 7. Hypothyroid, treated with levothyroxine, TSH was 1.27 in November 2018. TSH and free T4 in 4 months ordered. 8. Osteoporosis, was on 800 IU vitamin D daily; will be increased to 1000IU daily. Vit D1, 25(OH) was 23.8 on 01/10/19. 10. MOLST form: DNR, SOCIAL DIRECTOR, DNI, do not send to hospital, no feeding tube or IV, use antibiotics is needed. Pt lacks capacity; check on proxy Allergies Coded Allergies: MS - Penicillins (Unverified Allergy, Unknown, INJ. SITE RED ,HOT AND SWELLING, 09/12/12) MS - Penicillins Cross Reactors (Unverified Allergy, Unknown, INJ. SITE RED ,HOT AND SWELLING, 09/12/12) JT NOLASCO DO Feb 05, 2019 18:44
== END ==
LOC: SKLAB8 07:00
DX: F01.50 Vascular dementia, unspecified severity, without behavioral disturbance, psychotic disturbance, mood disturbance, and anxiety (principal)

== ENCOUNTER → 2019-02-11 | Outpatient (REF) | payer MEDICARE ==
[~2019-02-11] MED LIST changes: -SENN-53 PO; +SENN1TAB40 PO
[2019-02-11 08:10] LABS: HEMATOCRIT 38.7 % (36.0-47.0); HEMOGLOBIN 12.6 g/dl (12.0-15.5); MEAN CORPUSCULAR HEMOGLOBIN 32.2 pg (27.0-33.0); MEAN CORPUSCULAR HGB CONC 32.6 g/dl (32.0-36.5); PLATELET COUNT, AUTOMATED 197 10^3/uL (150-450); RED BLOOD COUNT 3.91 10^6/uL (4.00-5.40); WHITE BLOOD COUNT 7.7 10^3/uL (4.0-10.0)
== END ==
LOC: SKLAB8 07:00
PROVIDERS: ATTEND Internal Medicine
DX: I12.9 Hypertensive chronic kidney disease with stage 1 through stage 4 chronic kidney disease, or unspecified chronic kidney disease (principal); N18.4 Chronic kidney disease, stage 4 (severe)

== ENCOUNTER → 2019-04-22 | Outpatient (REF) | payer MEDICARE ==
[~2019-04-22] MED LIST changes: +SENN-53 PO; -SENN1TAB40 PO
== END ==
LOC: SKLAB8 08:00
PROVIDERS: ATTEND Family Medicine
DX: Z79.899 Other long term (current) drug therapy (principal)

== ENCOUNTER → 2019-04-30 | Outpatient (REF) | payer MEDICARE ==
[2019-04-30 10:11] LABS: HEMATOCRIT 39.6 % (36.0-47.0); HEMOGLOBIN 12.3 g/dl (12.0-15.5); MEAN CORPUSCULAR HEMOGLOBIN 31.3 pg (27.0-33.0); MEAN CORPUSCULAR HGB CONC 31.1 g/dl (32.0-36.5); MEAN CORPUSCULAR VOLUME 100.8 fl (80.0-96.0); PLATELET COUNT, AUTOMATED 180 10^3/uL (150-450); RED BLOOD COUNT 3.93 10^6/uL (4.00-5.40); WHITE BLOOD COUNT 5.4 10^3/uL (4.0-10.0)
[2019-04-30 10:38] LABS: CALCIUM LEVEL 8.5 MG/DL (8.8-10.2); CREATININE FOR GFR 1.13 MG/DL (0.55-1.30); GLOMERULAR FILTRATION RATE 48.7 (>32); POTASSIUM SERUM 3.9 MEQ/L (3.5-5.1); THYROID STIMULATING HORMONE 2.19 uIU/ML (0.358-3.740)
== END ==
LOC: SKLAB8 08:00
PROVIDERS: ATTEND Internal Medicine
DX: I10 Essential (primary) hypertension (principal)

== ENCOUNTER → 2019-05-13 | Outpatient (REF) | payer MEDICARE ==
[2019-05-13 17:28] LABS: CALCIUM LEVEL 8.7 MG/DL (8.8-10.2); CREATININE FOR GFR 0.99 MG/DL (0.55-1.30); GLOMERULAR FILTRATION RATE 56.8 (>32); POTASSIUM SERUM 4.5 MEQ/L (3.5-5.1)
== END ==
LOC: SKLAB8 07:00
PROVIDERS: ATTEND Family Medicine
DX: I11.0 Hypertensive heart disease with heart failure (principal)

== ENCOUNTER → 2019-05-23 | Outpatient (REF) | payer MEDICARE ==
--- NOTE | 2019-05-24 00:43 | REPVR ---
PROCEDURE INFORMATION: Exam: XR Abdomen, 1 View Exam date and time: 05/24/2019 12:26 AM Age: 83 years old Clinical history: Other: Elevated temp TECHNIQUE: Imaging protocol: XR of the abdomen. Views: Frontal supine view of the abdomen. 1 View. COMPARISON: CR Abdomen,Flat Plate KUB 07/23/2015 2:54 PM FINDINGS: Gastrointestinal tract: Mild gas in the GI tract primarily colonic without abnormal dilatation. Mild stool in the rectum. Bones/joints: Left femoral medullary rakel with traversing nail extending into the left femoral head which is new since the prior study. Degenerative changes of the lumbar spine with minimal left scoliosis. IMPRESSION: 1. Interval left femoral medullary rakel with traversing nail in the left hip since 07/23/2015. 2. Otherwise negative abdomen with mild gas which is primarily colonic. Mild stool is noted in the rectum. Electronically signed by: Joselito Shanks On 05/24/2019 00:43:10 AM
== END ==
LOC: SKLAB8 23:02
DX: R11.2 Nausea with vomiting, unspecified (principal); M51.36 Other intervertebral disc degeneration, lumbar region

== ENCOUNTER → 2019-05-23 | Outpatient (REF) | payer MEDICARE ==
[2019-05-23 22:30] LABS: BASO % 0.2 % (0.0-1.0); EOS % 0.1 % (0.0-3.0); HEMATOCRIT 34.8 % (36.0-47.0); HEMOGLOBIN 11.2 g/dl (12.0-15.5); LYMPH # 1.1 10^3/uL (1.5-5.0); MEAN CORPUSCULAR HEMOGLOBIN 30.8 pg (27.0-33.0); MEAN CORPUSCULAR HGB CONC 32.2 g/dl (32.0-36.5); MEAN CORPUSCULAR VOLUME 95.6 fl (80.0-96.0); MONO # 0.8 10^3/uL (0.0-0.8); MONO % 8.7 % (0.0-5.0); NEUTROPHILS # 6.7 10^3/uL (1.5-8.5); NEUTROPHILS % 77.8 % (36.0-66.0); PLATELET COUNT, AUTOMATED 187 10^3/uL (150-450); RED BLOOD COUNT 3.64 10^6/uL (4.00-5.40); WHITE BLOOD COUNT 8.7 10^3/uL (4.0-10.0)
[2019-05-23 22:54] LABS: ALBUMIN 2.6 GM/DL (3.2-5.2); BILIRUBIN,TOTAL 0.4 MG/DL (0.2-1.0); CALCIUM LEVEL 8.2 MG/DL (8.8-10.2); CREATININE FOR GFR 1.2 MG/DL (0.55-1.30); GLOMERULAR FILTRATION RATE 45.5 (>32); POTASSIUM SERUM 3.9 MEQ/L (3.5-5.1); TOTAL PROTEIN 5.9 GM/DL (6.4-8.2)
[2019-05-24 02:07] LABS: AMORPHOUS SEDIMENT SMALL (NEGATIVE); APPEARANCE, URINE CLOUDY (CLEAR); BACTERIA, URINE AUTO 1+ (NEGATIVE); BILIRUBIN, URINE AUTO 1+ (NEGATIVE); BLOOD, URINE BLOOD NEGATIVE (NEGATIVE); COLOR, URINE AMBER (YELLOW); GLUCOSE, URINE (UA) AUTO NEGATIVE (NEGATIVE); KETONE, URINE AUTO TRACE mg/dL (NEGATIVE); LEUKOCYTE ESTERASE, URINE AUTO 3+ (NEGATIVE); MUCUS, URINE SMALL (NEGATIVE); NITRITE, URINE AUTO NEGATIVE (NEGATIVE); PROTEIN, URINE AUTO 1+ mg/dL (NEGATIVE); RBC, URINE AUTO 8 /HPF (0-3); SPECIFIC GRAVITY URINE AUTO 1.025 (1.002-1.035); SQUAMOUS EPITHELIAL CELL UR AU 46 /HPF (0-6); TRANSITIONAL EPITHELIAL AUTO 1 /HPF; WBC, URINE AUTO 105 /HPF (0-3)
[2019-05-24 02:29] LABS: INFLUENZA A AMPLIFICATION NEGATIVE (NEGATIVE); INFLUENZA B AMPLIFICATION NEGATIVE (NEGATIVE)
== END ==
LOC: SKLAB8 21:33
DX: R50.9 Fever, unspecified (principal); R11.2 Nausea with vomiting, unspecified; M51.36 Other intervertebral disc degeneration, lumbar region

== ENCOUNTER → 2019-06-06 | Outpatient (REF) | payer MEDICARE ==
--- NOTE | 2019-06-06 18:31 | REP ---
Clinical: Cough . Comparison: 12/29/2016 . Findings: The mediastinum and cardiac silhouette are stable and within normal limits for portable technique. The lung gibbons demonstrate chronic interstitial changes without acute consolidation, effusion, or pneumothorax. Skeletal structures are intact. Impression: No acute cardiopulmonary process appreciated. Electronically Signed by Ebenezer Gutierrez MD 06/06/2019 06:22 P
[2019-06-06 19:47] LABS: BASO % 0.4 % (0.0-1.0); EOS # 0.3 10^3/uL (0.0-0.5); EOS % 5.9 % (0.0-3.0); HEMATOCRIT 34.7 % (36.0-47.0); HEMOGLOBIN 11.3 g/dl (12.0-15.5); LYMPH # 1.4 10^3/uL (1.5-5.0); LYMPH % 24.7 % (24.0-44.0); MEAN CORPUSCULAR HEMOGLOBIN 31.3 pg (27.0-33.0); MEAN CORPUSCULAR HGB CONC 32.6 g/dl (32.0-36.5); MEAN CORPUSCULAR VOLUME 96.1 fl (80.0-96.0); MONO # 0.7 10^3/uL (0.0-0.8); MONO % 12.1 % (0.0-5.0); NEUTROPHILS # 3.1 10^3/uL (1.5-8.5); NEUTROPHILS % 56.5 % (36.0-66.0); PLATELET COUNT, AUTOMATED 162 10^3/uL (150-450); RED BLOOD COUNT 3.61 10^6/uL (4.00-5.40); WHITE BLOOD COUNT 5.5 10^3/uL (4.0-10.0)
[2019-06-06 20:05] LABS: CALCIUM LEVEL 8.3 MG/DL (8.8-10.2); CREATININE FOR GFR 1.47 MG/DL (0.55-1.30); POTASSIUM SERUM 4.1 MEQ/L (3.5-5.1)
[2019-06-06 21:27] LABS: APPEARANCE, URINE HAZY (CLEAR); BACTERIA, URINE AUTO NEGATIVE (NEGATIVE); BILIRUBIN, URINE AUTO NEGATIVE (NEGATIVE); BLOOD, URINE BLOOD NEGATIVE (NEGATIVE); COLOR, URINE AMBER (YELLOW); GLUCOSE, URINE (UA) AUTO NEGATIVE (NEGATIVE); KETONE, URINE AUTO TRACE mg/dL (NEGATIVE); LEUKOCYTE ESTERASE, URINE AUTO NEGATIVE (NEGATIVE); MUCUS, URINE SMALL (NEGATIVE); NITRITE, URINE AUTO NEGATIVE (NEGATIVE); PROTEIN, URINE AUTO NEGATIVE (NEGATIVE); RBC, URINE AUTO 1 /HPF (0-3); SPECIFIC GRAVITY URINE AUTO 1.024 (1.002-1.035); SQUAMOUS EPITHELIAL CELL UR AU 0 /HPF (0-6); TRANSITIONAL EPITHELIAL AUTO <1 /HPF; WBC, URINE AUTO 2 /HPF (0-3)
== END ==
LOC: SKLAB8 17:51
DX: R50.9 Fever, unspecified (principal); R05 Cough

== ENCOUNTER → 2019-06-25 | Outpatient (REF) | payer MEDICARE ==
--- NOTE | 2019-07-03 09:48 | IPNPDOC ---
Text Note Date of Service The patient was seen on 07/03/19. NOTE HISTORY OF PRESENT ILLNESS: Molly is an 83 yo female with dementia. No event was reported. It was noted that her last fall was in Apr,. Patient's mood appears to be stable; denies any complaints including fever, chills, chest pain, dyspnea, or abdominal pain. Pt has a history of hallucination, but she denies having hallucination during the encounter. She denies any fever or chills. OBJECTIVE: PHYSICAL EXAMINATION: VITAL SIGNS: 07/03/18 Temp 99.6 BP 124/56, RR20, HR 68, Ox sat 100% on RA. General: Alert and awake. Cooperative and not in acute distress HEENT: Head normocephalic, atraumatic. No obvious conjunctiva injection noted. Cardiac: Normal S1, S2. No murmurs. Respiratory: Clear to auscultation. No wheezing, rales, or rhonchi. Abdomen: Soft, nondistended. No tenderness upon palpation SKIN: Minimal psoriatic plaques noted bilateral elbows. Extremity: Symmetric radial pulses b/l. Psych: Mood appears to be stable and appro to situation LABORATORY DATA: CBC 06/06/2019 WBC 5.5, Hg 11.3, Hct 34.7 Plt 162 ASSESSMENT AND PLAN: 1. Dementia, likely Lewy body dementia. Delusions stable, behaviors controlled. Pt cont to have non-threatening visual hallucinations. Last folate levelin Apr 2019 was >24 and thiamine 127. Last TSH 2.19 in Apr, 2019 wnl. 2. Medical history of vitamin D insufficiency, on daily vitamin supplementation. Pt has been on daily vitamin D supplement 1000IU daily with 25,(OH)VitD on 06/25/2019 was 50, wnl. Cont VitD 1000IU. 2. History of falls. Pt last fell on 04/12/19 and she was found on the floor reported on 04/21/19. Fall was unwitnessed, and there was noted to be no evidence of pt hitting her head or the rest of the body. Fall was likely 2/2 dementia or hallucinations. Discussed with pt that if she would like to get up and walk, please call the staff first as there was multiple history of falls with visual hallucinations as well as unstable gait. No more fall reported since 04/12/2019 3. Unsteady gait, low bed, mostly wheelchair bound. Patient is able to walk a short distance with cane and assist; pt is able to transfer from bed to wheelchair with assist. 4. Chronic anemia, resolved. Hg 11.3 on 06/06/2019, wnl 5. History of Vitamin B12 deficiency. Most recent B12 level Jun 2019 was within normal range. 6. Depression, continue with Remeron 30mg QHS. It was noted that pt also had some mild hallucinations during examinations but no combative behavior noted. Patient mood appeared to be stable. Continue to monitor. 7. Hypothyroid, treated with levothyroxine, TSH was 2.19 in Apr 2019, wnl. 8. Osteoporosis, Cont 1000IU vitD daily. 25,(OH)VitD on 06/25/2019 was 50, wnl 9. Psoriasis, psoriatic lesions greatly improved with only minimal psoriasis in b/l elbows. Cont emollient. Cont Triamciolone 0.1% BID PRN erythema/scaly region in bilateral forearms and elbows. 10. MOLST form: DNR, SCORER SINGLE, DNI, do not send to hospital, no feeding tube or IV, use antibiotics is needed. Lack of capacity form on file. Health care proxy form on file, Son [phone] The patient was examined by me on 07/03/2019, and was again examined by the precepting attending Dr. Ureña and me on . The above physical findings, assessments, and plans were discussed with the precepting attending. JT NOLASCO DO Jul 03, 2019 09:48
== END ==
LOC: SKLAB8 07:00
PROVIDERS: ATTEND Internal Medicine
DX: Z79.899 Other long term (current) drug therapy (principal)